=== PATIENT | male | born 1950 | race Caucasian/White ===

== ENCOUNTER 2021-11-10 09:38 | Emergency (ER) | payer OTHER, MEDICARE ==
[~2021-11-10] VITALS: Ht 188 cm; Wt 109.0 kg
[~2021-11-10 09:38] MED LIST: ASPI-611 PO; CHOL10006 PO; CYAN-51 PO; DILT360C38 PO; FINA5TAB11 PO; FURO20TA4 PO; GLUC-95 PO; LACT1CAP73 PO; LOSA25TA41 PO; METF750T46 PO; MULT-25 PO; OMEG10006 PO; OMEP20CA15 PO; POTA-207 PO; QUET25TA36 PO; SIMV10TA98 PO; SPIR25TA5 PO; TERA5CAP4 PO; VITE400C; folic acid tablet PO; thiamine tablet PO
[2021-11-10 09:55] VITALS: BP 133/76
[2021-11-10 10:28] LABS: BASOPHILS % (AUTO) 0.3 % (0-1); EOSINOPHILS % (AUTO) 0 % (0-6); HEMATOCRIT 42.7 % (42.0-52.0); HEMOGLOBIN 14.5 g/dl (14.0-17.9); LYMPHOCYTES # (AUTO) 0.7 X10'3 (1.1-4.8); MEAN CORPUSCULAR HEMOGLOBIN 33.5 PG (27.0-31.0); MEAN CORPUSCULAR HGB CONC 34.1 g/dL (33.0-36.5); MEAN CORPUSCULAR VOLUME 98.4 FL (78-98); MEAN PLATELET VOLUME 7.5 FL (7.4-10.4); MONOCYTES # (AUTO) 1.1 X10'3 (0-0.9); MONOCYTES % (AUTO) 9.7 % (2-12); NEUTROPHILS # (AUTO) 9.2 X10'3 (1.8-7.7); PLATELET COUNT 210 X10'3 (140-440); RED BLOOD COUNT 4.34 X10'6 (4.70-6.10); RED CELL DISTRIBUTION WIDTH 13.4 % (11.5-14.5); WHITE BLOOD COUNT 10.9 X10'3 (4.5-11.0)
[2021-11-10 11:01] LABS: ALANINE AMINOTRANSFERASE 30 U/L (12-78); ALBUMIN 3.3 G/DL (3.4-5.0); ALBUMIN/GLOBULIN RATIO 0.9 (1.1-1.5); ALKALINE PHOSPHATASE 147 IU/L (46-116); ANION GAP 13 (8-16); ASPARTATE AMINO TRANSFERASE 46 U/L (10-37); BILIRUBIN,TOTAL 1.6 MG/DL (0.1-1.0); BLOOD UREA NITROGEN 9 MG/DL (7-18); CALCIUM 8.4 MG/DL (8.5-10.1); CHLORIDE 100 MMOL/L (99-107); CREATININE 0.69 MG/DL (0.60-1.10); GLUCOSE 117 MG/DL (70-104); LIPASE < 50 U/L (73-393); POTASSIUM 3.9 MMOL/L (3.5-5.1); SODIUM 135 MMOL/L (135-145); TOTAL CARBON DIOXIDE 22.5 MMOL/L (24-32); TOTAL PROTEIN 7.1 G/DL (6.4-8.2); eGFR > 90 ML/MIN
[2021-11-10] MEDS ORDERED: LIDOcaine 2% 10ml TOPICAL JELLY (Urojet) MM ONE (12:40)
[2021-11-10 13:18] LABS: CLARITY,URINE CLEAR (Clear); COLOR,URINE YELLOW (Yellow); GLUCOSE, URINE NEGATIVE (Neg); KETONES,URINE TRACE mg/dl (Neg); LEUKOCYTE ESTERASE ,URINE NEGATIVE (Neg); NITRITES, URINE NEGATIVE (Neg); OCCULT BLOOD,URINE NEGATIVE (Neg); PH,URINE 5.5 (4.8-8.0); PROTEIN,URINE NEGATIVE (Neg)
[2021-11-10 13:21] LABS: UA COLLECTION TYPE CLN CATCH MIDSTREAM
== END 2021-11-10 14:31 | disposition home or self-care (01) ==
LOC: ER 09:38
DX: R33.9 Retention of urine, unspecified (principal); N39.0 Urinary tract infection, site not specified; K59.00 Constipation, unspecified; I48.91 Unspecified atrial fibrillation; E78.00 Pure hypercholesterolemia, unspecified; I10 Essential (primary) hypertension; K21.9 Gastro-esophageal reflux disease without esophagitis; E11.9 Type 2 diabetes mellitus without complications; M10.9 Gout, unspecified; F32.A Depression, unspecified; Z72.89 Other problems related to lifestyle; Z79.82 Long term (current) use of aspirin; Z79.899 Other long term (current) drug therapy
CPT/HCPCS: 36415; 51702; 80053; 81003; 83690; 85025; 99284

== ENCOUNTER 2021-11-13 12:05 | Emergency (ER) | payer OTHER, MEDICARE ==
[~2021-11-13] VITALS: Ht 188 cm; Wt 70.9 kg
[2021-11-13 15:39] LABS: BASOPHILS % (AUTO) 0.3 % (0-1); EOSINOPHILS % (AUTO) 0.2 % (0-6); HEMATOCRIT 38.5 % (42.0-52.0); HEMOGLOBIN 13.1 g/dl (14.0-17.9); LYMPHOCYTES # (AUTO) 1.2 X10'3 (1.1-4.8); LYMPHOCYTES % (AUTO) 12.2 % (21-51); MEAN CORPUSCULAR HEMOGLOBIN 33.3 PG (27.0-31.0); MEAN CORPUSCULAR HGB CONC 34.2 g/dL (33.0-36.5); MEAN CORPUSCULAR VOLUME 97.6 FL (78-98); MEAN PLATELET VOLUME 7.8 FL (7.4-10.4); MONOCYTES # (AUTO) 0.7 X10'3 (0-0.9); MONOCYTES % (AUTO) 7.1 % (2-12); NEUTROPHILS # (AUTO) 7.8 X10'3 (1.8-7.7); NEUTROPHILS % (AUTO) 80.2 % (42-75); PLATELET COUNT 189 X10'3 (140-440); RED BLOOD COUNT 3.94 X10'6 (4.70-6.10); RED CELL DISTRIBUTION WIDTH 13.1 % (11.5-14.5); WHITE BLOOD COUNT 9.7 X10'3 (4.5-11.0)
[2021-11-13 15:51] LABS: APTT 29 SECONDS (22-32)
[2021-11-13 16:15] LABS: ALANINE AMINOTRANSFERASE 28 U/L (12-78); ALBUMIN 2.7 G/DL (3.4-5.0); ALBUMIN/GLOBULIN RATIO 0.8 (1.1-1.5); ANION GAP 11 (8-16); ASPARTATE AMINO TRANSFERASE 39 U/L (10-37); BILIRUBIN,TOTAL 1.6 MG/DL (0.1-1.0); BLOOD UREA NITROGEN 11 MG/DL (7-18); BUN/CREATININE RATIO 13.9 (5.4-32.0); CALCIUM 8.5 MG/DL (8.5-10.1); CHLORIDE 99 MMOL/L (99-107); CREATININE 0.79 MG/DL (0.60-1.10); GLUCOSE 77 MG/DL (70-104); POTASSIUM 3.3 MMOL/L (3.5-5.1); SODIUM 135 MMOL/L (135-145); TOTAL CARBON DIOXIDE 24.9 MMOL/L (24-32); TOTAL PROTEIN 6.3 G/DL (6.4-8.2); eGFR > 90 ML/MIN
--- NOTE | 2021-11-13 17:42 | NUR ---
drained 850cc urine, clark in color from leg bag.
[2021-11-13] MEDS ORDERED: sulfamethoxazole/trimethoprim DS (800/160mg) tablet PO ONE (18:00)
[2021-11-13] MEDS ORDERED: LIDOcaine 1% W/epiNEPHrine 1:100,000 20ml vial SQ ONE (18:00)
[2021-11-13] MEDS ORDERED: SULF1TAB49 PO (18:43)
[2021-11-13 19:09] VITALS: BP 123/70
== END 2021-11-13 19:13 | disposition home or self-care (01) ==
LOC: ER 12:06
DX: L02.31 Cutaneous abscess of buttock (principal); R33.9 Retention of urine, unspecified; R30.0 Dysuria; I48.91 Unspecified atrial fibrillation; E78.00 Pure hypercholesterolemia, unspecified; I10 Essential (primary) hypertension; K21.9 Gastro-esophageal reflux disease without esophagitis; E11.9 Type 2 diabetes mellitus without complications; M10.9 Gout, unspecified; Z72.89 Other problems related to lifestyle; Z79.82 Long term (current) use of aspirin; Z79.899 Other long term (current) drug therapy
CPT/HCPCS: 36415; 80053; 85025; 85610; 85730; 96372; 99284

== ENCOUNTER 2021-11-20 23:05 | Emergency (ER) | payer OTHER, MEDICARE ==
[~2021-11-20] VITALS: Ht 188 cm; Wt 111.0 kg
[~2021-11-20 23:05] MED LIST changes: +SULF1TAB49 PO
[2021-11-21 00:24] LABS: CLARITY,URINE CLOUDY (Clear); COLOR,URINE YELLOW (Yellow); GLUCOSE, URINE NEGATIVE (Neg); KETONES,URINE NEGATIVE (Neg); LEUKOCYTE ESTERASE ,URINE NEGATIVE (Neg); NITRITES, URINE NEGATIVE (Neg); OCCULT BLOOD,URINE MODERATE (Neg); PH,URINE 5.5 (4.8-8.0); PROTEIN,URINE NEGATIVE (Neg)
[2021-11-21 00:37] LABS: UA COLLECTION TYPE FOLEY CATH
[2021-11-21 00:42] LABS: WBC,URINE 0-4 /HPF (0-4)
[2021-11-21 00:43] LABS: BACTERIA,URINE FEW /HPF (Neg); SQUAMOUS EPITHELIAL CELL,UR NONE SEEN /LPF (FEW)
[2021-11-21 00:45] LABS: MUCUS STRANDS FEW /LPF (Neg)
[2021-11-21 00:47] LABS: CAL OXALATE CRYSTALS FEW /HPF (NEGATIVE); URIC ACID CRYSTALS 2+ /HPF (NEGATIVE)
[2021-11-21 01:58] LABS: BASOPHILS # (AUTO) 0.1 X10'3 (0-0.2); BASOPHILS % (AUTO) 0.7 % (0-1); EOSINOPHILS % (AUTO) 0.2 % (0-6); HEMATOCRIT 37.7 % (42.0-52.0); HEMOGLOBIN 12.6 g/dl (14.0-17.9); LYMPHOCYTES # (AUTO) 0.5 X10'3 (1.1-4.8); LYMPHOCYTES % (AUTO) 5.5 % (21-51); MEAN CORPUSCULAR HEMOGLOBIN 32.8 PG (27.0-31.0); MEAN CORPUSCULAR HGB CONC 33.4 g/dL (33.0-36.5); MEAN CORPUSCULAR VOLUME 98.1 FL (78-98); MEAN PLATELET VOLUME 8.1 FL (7.4-10.4); MONOCYTES # (AUTO) 0.4 X10'3 (0-0.9); MONOCYTES % (AUTO) 4.6 % (2-12); NEUTROPHILS # (AUTO) 8.1 X10'3 (1.8-7.7); PLATELET COUNT 137 X10'3 (140-440); RED BLOOD COUNT 3.85 X10'6 (4.70-6.10); RED CELL DISTRIBUTION WIDTH 13.3 % (11.5-14.5); WHITE BLOOD COUNT 9.1 X10'3 (4.5-11.0)
[2021-11-21 02:22] LABS: ALANINE AMINOTRANSFERASE 57 U/L (12-78); ALBUMIN 2.6 G/DL (3.4-5.0); ALBUMIN/GLOBULIN RATIO 0.7 (1.1-1.5); ANION GAP 15 (8-16); ASPARTATE AMINO TRANSFERASE 110 U/L (10-37); BILIRUBIN,TOTAL 0.6 MG/DL (0.1-1.0); BLOOD UREA NITROGEN 12 MG/DL (7-18); BUN/CREATININE RATIO 14.6 (5.4-32.0); CALCIUM 8.3 MG/DL (8.5-10.1); CHLORIDE 105 MMOL/L (99-107); CREATININE 0.82 MG/DL (0.60-1.10); GLUCOSE 134 MG/DL (70-104); MAGNESIUM 1.2 MG/DL (1.5-2.4); POTASSIUM 3.6 MMOL/L (3.5-5.1); SODIUM 140 MMOL/L (135-145); TOTAL CARBON DIOXIDE 19.7 MMOL/L (24-32); TOTAL PROTEIN 6.5 G/DL (6.4-8.2); eGFR > 90 ML/MIN
[2021-11-21] MEDS ORDERED: thiamine 100mg tablet PO ONE (02:30)
[2021-11-21] MEDS ORDERED: normal saline 1000ml 1,000 ML IV ONE (02:35)
[2021-11-21] MEDS ORDERED: magnesium 2GM in 50ml NS 50 ML IV ONE (02:35)
[2021-11-21] MEDS ORDERED: magnesium oxide 400mg tablet PO ONE (02:35)
[2021-11-21 02:43] LABS: ETHANOL 0.016 GM/DL (0.0-0.010)
[2021-11-21 02:53] LABS: C-REACTIVE PROTEIN 2.52 MG/DL (0.0-0.5)
[2021-11-21 02:54] LABS: D-DIMER 2.64 MG/L FEU (0-0.50)
[2021-11-21] MEDS ORDERED: iohexol 350MG/ML 100ml bottle IV ONE (03:21)
[2021-11-21 04:34] VITALS: BP 114/69
--- NOTE | 2021-11-21 05:42 | NUR ---
CALLED FOR [facility] @2313 ETA 30 MIN
[2021-11-22] MEDS ORDERED: DILT-18 PO (14:34)
[2021-11-22] MEDS ORDERED: SULF1TAB49 PO (14:39)
== END 2021-11-21 06:05 | disposition home or self-care (01) ==
LOC: ER 23:06
DX: R53.1 Weakness (principal); Z20.822 Contact with and (suspected) exposure to COVID-19; I48.91 Unspecified atrial fibrillation; E78.00 Pure hypercholesterolemia, unspecified; I10 Essential (primary) hypertension; K21.9 Gastro-esophageal reflux disease without esophagitis; E11.9 Type 2 diabetes mellitus without complications; M10.9 Gout, unspecified; F32.A Depression, unspecified; Z72.89 Other problems related to lifestyle; Z79.82 Long term (current) use of aspirin; Z79.899 Other long term (current) drug therapy; W19.XXXA Unspecified fall, initial encounter; Y93.89 Activity, other specified; Y92.89 Other specified places as the place of occurrence of the external cause; Y99.8 Other external cause status
CPT/HCPCS: 36415; 71045; 71275; 74177; 80053; 80320; 81001; 83605; 83735; 83880; 84145; 84484; 85025; 85379; 86140; 87040; 87635; 93005; 96365; 96366; 99285; C9803; J3475; J7030; Q9967

== ENCOUNTER 2021-11-21 16:20 | Inpatient (IN) | payer OTHER, MEDICARE ==
[~2021-11-21] VITALS: Ht 188 cm; Wt 109.1 kg
--- NOTE | 2021-11-21 17:31 | NUR ---
pt ambulated approx 10 feet with mod assistance to help pt stand. provider present and aware.
[2021-11-21 17:48] LABS: BASOPHILS # (AUTO) 0.1 X10'3 (0-0.2); BASOPHILS % (AUTO) 0.5 % (0-1); EOSINOPHILS % (AUTO) 0 % (0-6); HEMATOCRIT 38.7 % (42.0-52.0); LYMPHOCYTES # (AUTO) 0.5 X10'3 (1.1-4.8); LYMPHOCYTES % (AUTO) 2.9 % (21-51); MEAN CORPUSCULAR HEMOGLOBIN 32.7 PG (27.0-31.0); MEAN CORPUSCULAR HGB CONC 33.6 g/dL (33.0-36.5); MEAN CORPUSCULAR VOLUME 97.1 FL (78-98); MEAN PLATELET VOLUME 8.6 FL (7.4-10.4); MONOCYTES # (AUTO) 0.5 X10'3 (0-0.9); NEUTROPHILS # (AUTO) 16.9 X10'3 (1.8-7.7); NEUTROPHILS % (AUTO) 93.6 % (42-75); PLATELET COUNT 155 X10'3 (140-440); RED BLOOD COUNT 3.99 X10'6 (4.70-6.10); RED CELL DISTRIBUTION WIDTH 13.7 % (11.5-14.5)
[2021-11-21] MEDS ORDERED: normal saline 1000ML IV soln IVB ONE (18:05)
[2021-11-21] MEDS ORDERED: lactulose 20gm/30ml cup PO ONE (18:10)
[2021-11-21 18:11] LABS: ALANINE AMINOTRANSFERASE 56 U/L (12-78); ALBUMIN 2.7 G/DL (3.4-5.0); ALBUMIN/GLOBULIN RATIO 0.8 (1.1-1.5); ALKALINE PHOSPHATASE 153 IU/L (46-116); ANION GAP 13 (8-16); ASPARTATE AMINO TRANSFERASE 72 U/L (10-37); BILIRUBIN,TOTAL 1.1 MG/DL (0.1-1.0); BLOOD UREA NITROGEN 10 MG/DL (7-18); BUN/CREATININE RATIO 12.7 (5.4-32.0); CALCIUM 7.6 MG/DL (8.5-10.1); CHLORIDE 102 MMOL/L (99-107); CREATININE 0.79 MG/DL (0.60-1.10); GLUCOSE 154 MG/DL (70-104); POTASSIUM 3.4 MMOL/L (3.5-5.1); SODIUM 135 MMOL/L (135-145); TOTAL CARBON DIOXIDE 20.1 MMOL/L (24-32); TOTAL PROTEIN 6.3 G/DL (6.4-8.2); eGFR > 90 ML/MIN
[2021-11-21] MEDS ORDERED: CefTRIAXone 2gm/D5W 50ml BAG 50 ML IV ONE (18:40)
[2021-11-21 18:52] LABS: MAGNESIUM 1.5 MG/DL (1.5-2.4)
[2021-11-21 19:30] LABS: CLARITY,URINE CLOUDY (Clear); COLOR,URINE YELLOW (Yellow); GLUCOSE, URINE NEGATIVE (Neg); KETONES,URINE TRACE mg/dl (Neg); LEUKOCYTE ESTERASE ,URINE NEGATIVE (Neg); NITRITES, URINE POSITIVE (Neg); OCCULT BLOOD,URINE LARGE (Neg); PROTEIN,URINE 30 mg/dl (Neg)
[2021-11-21 19:33] LABS: UA COLLECTION TYPE FOLEY CATH
[2021-11-21 19:44] LABS: BACTERIA,URINE 1+ /HPF (Neg); MUCUS STRANDS FEW /LPF (Neg); SQUAMOUS EPITHELIAL CELL,UR FEW /LPF (FEW)
[2021-11-21 19:45] LABS: CAL OXALATE CRYSTALS 1+ /HPF (NEGATIVE); URIC ACID CRYSTALS 3+ /HPF (NEGATIVE)
[2021-11-21] MEDS ORDERED: potassium CL 10mEq/100ml bag 100 ML IV PRN (23:05)
[2021-11-21] MEDS ORDERED: magnesium 2GM in 50ml NS 50 ML IV PRN (23:05)
[2021-11-21] MEDS ORDERED: potassium Cl 20 mEq SR tablet PO PRN (23:05)
[2021-11-21] MEDS ORDERED: LORazepam 1 MG tablet PO PRN (23:05)
[2021-11-21] MEDS ORDERED: magnesium 4gm in 100ml NS 100 ML IV PRN (23:05)
[2021-11-21] MEDS ORDERED: acetaminophen 325mg tablet PO PRN ×2 (23:05)
[2021-11-21] MEDS ORDERED: LORazepam 2 mg/ml vial IV PRN (23:05)
[2021-11-21] MEDS ORDERED: morphine 2 MG/ML inj. syringe IV PRN (23:05)
[2021-11-21] MEDS ORDERED: magnesium Cl slow-release 64mg tablet PO PRN (23:05)
[2021-11-21] MEDS ORDERED: normal saline 1000ml 1,000 ML IV SCH (23:05)
[2021-11-21] MEDS ORDERED: ondansetron/PF 4mg/2ml inj IV PRN (23:05)
[2021-11-22] MEDS: piperacillin/tazo 3.375gm/50ml 50 ML IV SCH ×4 (00:17→23:45)
[2021-11-22 01:10] VITALS: BP 122/81
[2021-11-22 06:24] LABS: BASOPHILS % (AUTO) 0.3 % (0-1); EOSINOPHILS % (AUTO) 0.1 % (0-6); HEMATOCRIT 35.2 % (42.0-52.0); HEMOGLOBIN 11.8 g/dl (14.0-17.9); LYMPHOCYTES # (AUTO) 0.5 X10'3 (1.1-4.8); LYMPHOCYTES % (AUTO) 4.8 % (21-51); MEAN CORPUSCULAR HEMOGLOBIN 33.2 PG (27.0-31.0); MEAN CORPUSCULAR HGB CONC 33.5 g/dL (33.0-36.5); MEAN PLATELET VOLUME 9.1 FL (7.4-10.4); MONOCYTES # (AUTO) 0.3 X10'3 (0-0.9); MONOCYTES % (AUTO) 2.4 % (2-12); NEUTROPHILS # (AUTO) 9.9 X10'3 (1.8-7.7); NEUTROPHILS % (AUTO) 92.4 % (42-75); PLATELET COUNT 115 X10'3 (140-440); RED BLOOD COUNT 3.56 X10'6 (4.70-6.10); RED CELL DISTRIBUTION WIDTH 13.8 % (11.5-14.5); WHITE BLOOD COUNT 10.7 X10'3 (4.5-11.0)
[2021-11-22 06:37] LABS: ALANINE AMINOTRANSFERASE 43 U/L (12-78); ALBUMIN 2.2 G/DL (3.4-5.0); ALBUMIN/GLOBULIN RATIO 0.7 (1.1-1.5); ALKALINE PHOSPHATASE 112 IU/L (46-116); ANION GAP 12 (8-16); ASPARTATE AMINO TRANSFERASE 36 U/L (10-37); BILIRUBIN,TOTAL 1.2 MG/DL (0.1-1.0); BLOOD UREA NITROGEN 12 MG/DL (7-18); BUN/CREATININE RATIO 15.6 (5.4-32.0); CALCIUM 7.3 MG/DL (8.5-10.1); CHLORIDE 106 MMOL/L (99-107); CREATININE 0.77 MG/DL (0.60-1.10); GLUCOSE 117 MG/DL (70-104); LIPASE < 50 U/L (73-393); MAGNESIUM 1.4 MG/DL (1.5-2.4); PHOSPHORUS 2.1 MG/DL (2.3-4.5); POTASSIUM 3.4 MMOL/L (3.5-5.1); SODIUM 139 MMOL/L (135-145); TOTAL CARBON DIOXIDE 21.1 MMOL/L (24-32); TOTAL PROTEIN 5.4 G/DL (6.4-8.2); eGFR > 90 ML/MIN
[2021-11-22 06:45] LABS: HEMOGLOBIN A1C 6.1 % (4.5-6.2)
[2021-11-22 08:00] VITALS: BP 112/73
[2021-11-22] MEDS: K and/or MAG REPLACEMENT MC SCH ×2 (08:24→20:30)
[2021-11-22] MEDS: potassium Cl 20 mEq SR tablet PO PRN ×5 (08:24→20:58)
[2021-11-22] MEDS: heparin, porcine 5000 units/ml vial SQ SCH ×2 (08:24→20:56)
--- NOTE | 2021-11-22 10:45 | NUR ---
Malnutrition consult: Pt admit dx sepsis secondary to acute UTI, weakness, cirrhosis of liver, and chronic alcoholism per EMR. Pt reports 14-23 lb wt loss and decreased appetite per EMR. international logistics analyst spoke w/ pt at bedside and noted pt mostly consumes salad and fruit at home w/ a decreased appetite the last two weeks, and over the last year has lost a total of 25 lbs. Pt currently on regular diet and pending PO intake, though pt states he consumed roughly 1/3 of his last meal. Pt current wt 109kg unscaled, though wt hx February 2021 chair scale 103kg, and pt reported recent standing scale wt of 111 kg. Pending physical assessment, though pt has no visible signs of fat and muscle wasting observed at bedside. Pt lacks minimum two malnutrition criteria at this time. No nutrition intervention implemented at this time, pending further PO trends. Recommendations: 1. Continue regular diet 2. Monitor need for ONS vs double protein WM 3. Routine bowel care 4. Scaled wt this admit, subsequent weekly scaled wts Addendum: 11/22/21 at 1046 by Airam Lovelace Slubber Frame Changer RD Amended: Links added. Addendum: 11/22/21 at [address] I have reviewed assessment by brand marketing intern
[2021-11-22 11:00] VITALS: BP 113/70
[2021-11-22] MEDS: HYDROcodone/acetaminophen 5mg/325mg tablet PO PRN ×2 (12:37→17:20)
[2021-11-22] MEDS ORDERED: DILT-18 PO (14:34)
[2021-11-22] MEDS ORDERED: SULF1TAB49 PO (14:39)
--- NOTE | 2021-11-22 15:26 | NUR ---
Student documentation: I have reviewed and agree with all interventions, assessments performed and documented by Bia Chavez. Addendum: 11/22/21 at 1528 by Katerina CABRERA Amended: Links added.
[2021-11-22 18:00] VITALS: BP 111/69
[2021-11-22] MEDS ORDERED: quetiapine 100mg tablet PO SCH (21:00)
[2021-11-22] MEDS ORDERED: QUEtiapine 25mg tablet PO SCH ×2 (21:24→21:37)
[2021-11-22 23:33] VITALS: BP 111/69
[2021-11-23] VITALS: BP 102/73
--- NOTE | 2021-11-23 02:20 | NUR ---
pt has estrada in place to leg bag, states inserted @ 3 weeks ago. Addendum: 11/23/21 at 0221 by Sundeep Swan RN Amended: Links added.
--- NOTE | 2021-11-23 06:10 | NUR ---
Patient in room [facility]. I have received report from STACEY Talavera and had the opportunity to ask questions and assume patient care.
[2021-11-23 06:19] LABS: BASOPHILS % (AUTO) 0.5 % (0-1); EOSINOPHILS # (AUTO) 0.1 X10'3 (0-0.9); HEMATOCRIT 34.2 % (42.0-52.0); HEMOGLOBIN 11.5 g/dl (14.0-17.9); LYMPHOCYTES # (AUTO) 0.6 X10'3 (1.1-4.8); LYMPHOCYTES % (AUTO) 8.6 % (21-51); MEAN CORPUSCULAR HEMOGLOBIN 33.1 PG (27.0-31.0); MEAN CORPUSCULAR HGB CONC 33.6 g/dL (33.0-36.5); MEAN CORPUSCULAR VOLUME 98.7 FL (78-98); MEAN PLATELET VOLUME 8.8 FL (7.4-10.4); MONOCYTES # (AUTO) 0.2 X10'3 (0-0.9); MONOCYTES % (AUTO) 3.1 % (2-12); NEUTROPHILS # (AUTO) 5.6 X10'3 (1.8-7.7); NEUTROPHILS % (AUTO) 86.8 % (42-75); PLATELET COUNT 105 X10'3 (140-440); RED BLOOD COUNT 3.46 X10'6 (4.70-6.10); RED CELL DISTRIBUTION WIDTH 14.2 % (11.5-14.5); WHITE BLOOD COUNT 6.4 X10'3 (4.5-11.0)
[2021-11-23 06:29] LABS: ALANINE AMINOTRANSFERASE 31 U/L (12-78); ALBUMIN/GLOBULIN RATIO 0.6 (1.1-1.5); ALKALINE PHOSPHATASE 110 IU/L (46-116); ANION GAP 11 (8-16); ASPARTATE AMINO TRANSFERASE 53 U/L (10-37); BILIRUBIN,TOTAL 1.6 MG/DL (0.1-1.0); BLOOD UREA NITROGEN 15 MG/DL (7-18); CALCIUM 7.5 MG/DL (8.5-10.1); CHLORIDE 108 MMOL/L (99-107); CREATININE 0.75 MG/DL (0.60-1.10); GLUCOSE 104 MG/DL (70-104); LIPASE < 50 U/L (73-393); MAGNESIUM 1.6 MG/DL (1.5-2.4); PHOSPHORUS 1.7 MG/DL (2.3-4.5); POTASSIUM 3.9 MMOL/L (3.5-5.1); SODIUM 140 MMOL/L (135-145); TOTAL CARBON DIOXIDE 21.5 MMOL/L (24-32); TOTAL PROTEIN 5.4 G/DL (6.4-8.2); eGFR > 90 ML/MIN
[2021-11-23 07:00] VITALS: BP 113/79
[2021-11-23] MEDS ORDERED: glucagon, human recombinant 1mg kit SUBCUT PRN (07:20)
[2021-11-23] MEDS ORDERED: dextrose 50%-water 50ml dispensing syringe IV PRN ×2 (07:20)
[2021-11-23] MEDS ORDERED: DEXTROSE 15 GM of carb/4 tabs (each vial/BOTTLE has 4 tablets) PO PRN ×2 (07:20)
[2021-11-23] MEDS ORDERED: insulin Lispro (HumaLOG) vial - multi-dose SQ SCH (07:20)
[2021-11-23] MEDS: K and/or MAG REPLACEMENT MC SCH (08:00)
[2021-11-23] MEDS: heparin, porcine 5000 units/ml vial SQ SCH (09:37)
[2021-11-23] MEDS: piperacillin/tazo 3.375gm/50ml 50 ML IV SCH (09:37)
[2021-11-23 10:20] LABS: CLARITY,URINE CLEAR (Clear); COLOR,URINE YELLOW (Yellow); GLUCOSE, URINE NEGATIVE (Neg); KETONES,URINE TRACE mg/dl (Neg); LEUKOCYTE ESTERASE ,URINE NEGATIVE (Neg); NITRITES, URINE NEGATIVE (Neg); OCCULT BLOOD,URINE TRACE-INTACT (Neg); PH,URINE 6.5 (4.8-8.0); PROTEIN,URINE NEGATIVE (Neg)
[2021-11-23 10:26] LABS: UA COLLECTION TYPE FOLEY CATH
[2021-11-23 10:27] LABS: BACTERIA,URINE NONE SEEN /HPF (Neg); MUCUS STRANDS FEW /LPF (Neg); RBC,URINE 0-2 /HPF (0-2); SQUAMOUS EPITHELIAL CELL,UR FEW /LPF (FEW); WBC,URINE 0-4 /HPF (0-4)
[2021-11-23] MEDS ORDERED: CIPR-202 PO (10:49)
[2021-11-23 11:00] VITALS: BP 109/72
--- NOTE | 2021-11-23 14:20 | NUR ---
DC inst provided to pt. IV DC'd, tip intact. All belongings sent w/pt. WC to vehicle.
[2021-11-23] MEDS ORDERED: insulin glargine (Lantus) pen - multi-dose SQ SCH (21:00)
[2021-11-26] MEDS ORDERED: thiamine 100mg tablet PO SCH (08:00)
[2021-11-26] MEDS ORDERED: folic acid 1mg tablet PO SCH (08:00)
== END 2021-11-23 14:50 | disposition home health service (06) | DRG 698 ==
LOC: ER 16:21 → ED HOLD 23:08 → SUR 3N 11-22 00:20
PROVIDERS: ADMIT Internal Medicine; ATTEND Family Medicine
DX: T83.511A Infection and inflammatory reaction due to indwelling urethral catheter, initial encounter (principal); A41.9 Sepsis, unspecified organism; N39.0 Urinary tract infection, site not specified; E11.9 Type 2 diabetes mellitus without complications; Z20.822 Contact with and (suspected) exposure to COVID-19; E78.00 Pure hypercholesterolemia, unspecified; N40.1 Benign prostatic hyperplasia with lower urinary tract symptoms; R33.8 Other retention of urine; E78.5 Hyperlipidemia, unspecified; E87.6 Hypokalemia; F10.20 Alcohol dependence, uncomplicated; K74.60 Unspecified cirrhosis of liver; I10 Essential (primary) hypertension; I48.91 Unspecified atrial fibrillation; F32.A Depression, unspecified; K21.9 Gastro-esophageal reflux disease without esophagitis; K76.9 Liver disease, unspecified; M10.9 Gout, unspecified; Z71.41 Alcohol abuse counseling and surveillance of alcoholic
CPT/HCPCS: 36415; 80053; 81001; 82140; 82948; 83036; 83605; 83690; 83735; 84100; 84145; 85025; 85610; 87040; 87081; 87502; 87503; 87635; 97110; 97116; 97162; 99285; C9803; G0378; J0696; J1644; J1815; J2543; J7030

== ENCOUNTER 2021-12-07 09:08 | Emergency (ER) | payer OTHER, MEDICARE ==
[~2021-12-07] VITALS: Ht 188 cm; Wt 112.9 kg
[~2021-12-07 09:08] MED LIST changes: -ASPI-611 PO; -CHOL10006 PO; +CIPR-202 PO; +DILT-18 PO; -DILT360C38 PO; -GLUC-95 PO; -LACT1CAP73 PO; +LIDOcaine 1% 30ml preserv. free vial ONE; -MULT-25 PO; -OMEG10006 PO; -SPIR25TA5 PO; -SULF1TAB49 PO; -TERA5CAP4 PO; -VITE400C; -folic acid tablet PO; -thiamine tablet PO
[2021-12-07] MEDS ORDERED: albumin (human) 25% 100 ML IV solution IV ONE (10:30)
[2021-12-07 11:16] LABS: BASOPHILS # (AUTO) 0.1 X10'3 (0-0.2); BASOPHILS % (AUTO) 1.9 % (0-1); EOSINOPHILS # (AUTO) 0.1 X10'3 (0-0.9); EOSINOPHILS % (AUTO) 1.4 % (0-6); HEMOGLOBIN 12.2 g/dl (14.0-17.9); LYMPHOCYTES # (AUTO) 0.9 X10'3 (1.1-4.8); LYMPHOCYTES % (AUTO) 11.5 % (21-51); MEAN CORPUSCULAR HEMOGLOBIN 32.6 PG (27.0-31.0); MEAN CORPUSCULAR HGB CONC 32.9 g/dL (33.0-36.5); MEAN CORPUSCULAR VOLUME 99.3 FL (78-98); MEAN PLATELET VOLUME 8.9 FL (7.4-10.4); MONOCYTES # (AUTO) 0.4 X10'3 (0-0.9); MONOCYTES % (AUTO) 5.1 % (2-12); NEUTROPHILS % (AUTO) 80.1 % (42-75); PLATELET COUNT 230 X10'3 (140-440); RED BLOOD COUNT 3.73 X10'6 (4.70-6.10); RED CELL DISTRIBUTION WIDTH 14.3 % (11.5-14.5); WHITE BLOOD COUNT 7.5 X10'3 (4.5-11.0)
[2021-12-07 11:27] LABS: APTT 29 SECONDS (22-32)
[2021-12-07 11:31] LABS: ALANINE AMINOTRANSFERASE 48 U/L (12-78); ALBUMIN 2.4 G/DL (3.4-5.0); ALBUMIN/GLOBULIN RATIO 0.5 (1.1-1.5); ALKALINE PHOSPHATASE 119 IU/L (46-116); ANION GAP 10 (8-16); ASPARTATE AMINO TRANSFERASE 95 U/L (10-37); BILIRUBIN,TOTAL 1.3 MG/DL (0.1-1.0); BLOOD UREA NITROGEN 9 MG/DL (7-18); CALCIUM 8.6 MG/DL (8.5-10.1); CHLORIDE 107 MMOL/L (99-107); CREATININE 0.82 MG/DL (0.60-1.10); GLUCOSE 113 MG/DL (70-104); POTASSIUM 4.3 MMOL/L (3.5-5.1); SODIUM 140 MMOL/L (135-145); TOTAL CARBON DIOXIDE 23.1 MMOL/L (24-32); TOTAL PROTEIN 6.9 G/DL (6.4-8.2); eGFR > 90 ML/MIN
[2021-12-07] MEDS ORDERED: LIDOcaine 1% 30ml preserv. free vial IJ ONE (12:00)
--- NOTE | 2021-12-07 12:14 | NUR ---
dr. alcantar at bedside for paracentesis.
[2021-12-07 13:39] VITALS: BP 129/85
== END 2021-12-07 13:46 | disposition home or self-care (01) ==
LOC: ER 09:08
DX: K70.31 Alcoholic cirrhosis of liver with ascites (principal); I48.91 Unspecified atrial fibrillation; E78.00 Pure hypercholesterolemia, unspecified; I10 Essential (primary) hypertension; K21.9 Gastro-esophageal reflux disease without esophagitis; E11.9 Type 2 diabetes mellitus without complications; M10.9 Gout, unspecified; N40.0 Benign prostatic hyperplasia without lower urinary tract symptoms; K76.9 Liver disease, unspecified; Z72.89 Other problems related to lifestyle; Z79.2 Long term (current) use of antibiotics; Z79.899 Other long term (current) drug therapy
CPT/HCPCS: 36415; 49083; 80053; 85025; 85610; 85730; 96365; 99285; J3490; P9047

== ENCOUNTER 2021-12-14 15:53 | Emergency (ER) | payer OTHER, MEDICARE ==
[~2021-12-14] VITALS: Ht 188 cm; Wt 111.0 kg
[~2021-12-14 15:53] MED LIST changes: -LIDOcaine 1% 30ml preserv. free vial ONE
[2021-12-14 16:00] VITALS: BP 118/77
[2021-12-14] MEDS ORDERED: FURO-149 PO (17:57)
[2021-12-14] MEDS ORDERED: SPIR50TA5 PO (17:57)
== END 2021-12-14 18:13 | disposition home or self-care (01) ==
LOC: ER 15:53
DX: R18.8 Other ascites (principal); K74.60 Unspecified cirrhosis of liver; R60.0 Localized edema; I48.91 Unspecified atrial fibrillation; E78.00 Pure hypercholesterolemia, unspecified; I10 Essential (primary) hypertension; K21.9 Gastro-esophageal reflux disease without esophagitis; N40.0 Benign prostatic hyperplasia without lower urinary tract symptoms; E11.9 Type 2 diabetes mellitus without complications; M10.9 Gout, unspecified; K72.90 Hepatic failure, unspecified without coma; Z72.89 Other problems related to lifestyle; Z79.2 Long term (current) use of antibiotics; Z79.899 Other long term (current) drug therapy
CPT/HCPCS: 99283

== ENCOUNTER 2021-12-31 10:22 | Emergency (ER) | payer OTHER, MEDICARE ==
[~2021-12-31] VITALS: Ht 188 cm; Wt 115.9 kg
[~2021-12-31 10:22] MED LIST changes: -CIPR-202 PO; +FURO-149 PO; +SPIR50TA5 PO
--- NOTE | 2021-12-31 12:03 | NUR ---
first contact with pt, presents to ed requesting paracentesis. pt states his appt is in sacrmento to be drained. pt reports abd tenderness and diarrhea. ambulated with steady to er bed 7. awaiting md.
--- NOTE | 2021-12-31 12:55 | NUR ---
dr. kaplan at bedside.
[2021-12-31 14:06] LABS: ALBUMIN 2.8 G/DL (3.4-5.0); ANION GAP 13 (8-16); BLOOD UREA NITROGEN 8 MG/DL (7-18); BUN/CREATININE RATIO 8.6 (5.4-32.0); CHLORIDE 107 MMOL/L (99-107); CREATININE 0.93 MG/DL (0.60-1.10); GLUCOSE 132 MG/DL (70-104); POTASSIUM 3.9 MMOL/L (3.5-5.1); SODIUM 142 MMOL/L (135-145); TOTAL CARBON DIOXIDE 22.2 MMOL/L (24-32); eGFR 80 ML/MIN
[2021-12-31 17:08] VITALS: BP 127/76
== END 2021-12-31 17:31 | disposition home or self-care (01) ==
LOC: ER 10:23
DX: K70.31 Alcoholic cirrhosis of liver with ascites (principal); I48.91 Unspecified atrial fibrillation; E78.00 Pure hypercholesterolemia, unspecified; I10 Essential (primary) hypertension; K21.9 Gastro-esophageal reflux disease without esophagitis; N40.0 Benign prostatic hyperplasia without lower urinary tract symptoms; E11.9 Type 2 diabetes mellitus without complications; M10.9 Gout, unspecified; Z72.89 Other problems related to lifestyle; Z79.2 Long term (current) use of antibiotics; Z79.899 Other long term (current) drug therapy
CPT/HCPCS: 36415; 49083; 80048; 99285

== ENCOUNTER 2022-05-16 09:58 | Emergency (ER) | payer OTHER, MEDICARE ==
[~2022-05-16] VITALS: Ht 182.9 cm; Wt 109.1 kg
[2022-05-16 11:58] LABS: BASOPHILS % (AUTO) 0.8 % (0-1); EOSINOPHILS % (AUTO) 0.7 % (0-6); HEMATOCRIT 39.2 % (42.0-52.0); HEMOGLOBIN 13.5 g/dl (14.0-17.9); LYMPHOCYTES # (AUTO) 0.7 X10'3 (1.1-4.8); LYMPHOCYTES % (AUTO) 13.1 % (21-51); MEAN CORPUSCULAR HEMOGLOBIN 31.3 PG (27.0-31.0); MEAN CORPUSCULAR HGB CONC 34.4 g/dL (33.0-36.5); MEAN CORPUSCULAR VOLUME 91.1 FL (78-98); MEAN PLATELET VOLUME 7.9 FL (7.4-10.4); MONOCYTES # (AUTO) 0.4 X10'3 (0-0.9); MONOCYTES % (AUTO) 8.5 % (2-12); NEUTROPHILS # (AUTO) 3.8 X10'3 (1.8-7.7); NEUTROPHILS % (AUTO) 76.9 % (42-75); PLATELET COUNT 117 X10'3 (140-440); RED CELL DISTRIBUTION WIDTH 18.8 % (11.5-14.5)
[2022-05-16 12:14] LABS: ANISOCYTOSIS 2+; PLATELET ESTIMATE DECREASED
[2022-05-16 12:26] LABS: ALANINE AMINOTRANSFERASE 36 U/L (12-78); ALBUMIN 2.7 G/DL (3.4-5.0); ALBUMIN/GLOBULIN RATIO 0.7 (1.1-1.5); ALKALINE PHOSPHATASE 142 IU/L (46-116); ANION GAP 16 (8-16); ASPARTATE AMINO TRANSFERASE 68 U/L (10-37); BILIRUBIN,TOTAL 1.2 MG/DL (0.1-1.0); BLOOD UREA NITROGEN 11 MG/DL (7-18); BUN/CREATININE RATIO 10.5 (5.4-32.0); CALCIUM 7.9 MG/DL (8.5-10.1); CHLORIDE 102 MMOL/L (99-107); CREATININE 1.05 MG/DL (0.60-1.10); GLUCOSE 124 MG/DL (70-104); POTASSIUM 3.6 MMOL/L (3.5-5.1); SODIUM 140 MMOL/L (135-145); TOTAL PROTEIN 6.6 G/DL (6.4-8.2); eGFR 69 ML/MIN
[2022-05-16] MEDS ORDERED: LIDOcaine 1% 30ml preserv. free vial IJ ONE (13:20)
--- NOTE | 2022-05-16 13:25 | NUR ---
Called pharmacy for Lidocaine order.
[2022-05-16] MEDS ORDERED: LIDOcaine 1% (10mg/ml)w/preservative inj. 20ml MDV IJ ONE (13:30)
--- NOTE | 2022-05-16 14:00 | NUR ---
Provider at bedside to do paracentesis.
[2022-05-16] MEDS ORDERED: albumin (human) 25% 100 ML IV solution IV ONE (14:15)
[2022-05-16] MEDS ORDERED: FURO-149 PO (14:55)
[2022-05-16 16:02] LABS: CLARITY,URINE CLEAR (Clear); COLOR,URINE YELLOW (Yellow); GLUCOSE, URINE NEGATIVE (Neg); KETONES,URINE NEGATIVE (Neg); LEUKOCYTE ESTERASE ,URINE NEGATIVE (Neg); NITRITES, URINE NEGATIVE (Neg); OCCULT BLOOD,URINE NEGATIVE (Neg); PROTEIN,URINE NEGATIVE (Neg); UROBILINOGEN,URINE 0.2 E.U/dL (0.2-1.0)
[2022-05-16 16:07] LABS: UA COLLECTION TYPE CLN CATCH MIDSTREAM
[2022-05-16 16:34] VITALS: BP 126/91
== END 2022-05-16 17:02 | disposition home or self-care (01) ==
LOC: ER 09:58
DX: K70.31 Alcoholic cirrhosis of liver with ascites (principal); I11.9 Hypertensive heart disease without heart failure; E78.00 Pure hypercholesterolemia, unspecified; K21.9 Gastro-esophageal reflux disease without esophagitis; E11.9 Type 2 diabetes mellitus without complications; F32.A Depression, unspecified; Z79.899 Other long term (current) drug therapy; Z79.84 Long term (current) use of oral hypoglycemic drugs
CPT/HCPCS: 49083; 80053; 81003; 85008; 85025; 96374; 99285; P9047

== ENCOUNTER 2022-06-03 07:07 | Emergency (ER) | payer OTHER, MEDICARE ==
[~2022-06-03] VITALS: Ht 182.9 cm; Wt 110.8 kg
[2022-06-03] MEDS ORDERED: LIDOcaine 1% w/EPI 1:100,000 30ml vial (MDV) IJ ONE (07:55)
[2022-06-03] MEDS ORDERED: LIDOcaine 1% W/epiNEPHrine 1:200,000 10ml vial IJ ONE (07:55)
[2022-06-03 09:19] VITALS: BP 129/84
== END 2022-06-03 09:25 | disposition home or self-care (01) ==
LOC: ER 07:08
DX: R18.8 Other ascites (principal); E78.00 Pure hypercholesterolemia, unspecified; I10 Essential (primary) hypertension; K21.9 Gastro-esophageal reflux disease without esophagitis; Z87.891 Personal history of nicotine dependence
CPT/HCPCS: 49083; 99285

== ENCOUNTER 2022-06-24 07:53 | Day surgery (SDC) | payer OTHER ==
[~2022-06-24] VITALS: Ht 182.9 cm; Wt 108.8 kg
[2022-06-24] VITALS (12 sets, daily range): BP systolic 109–134; BP diastolic 73–94
[2022-06-24] MEDS ORDERED: LIDOcaine 1%/PF 5ML 10 MG/ML VIAL SQ ONE (08:15)
[2022-06-24] MEDS ORDERED: FURO-150 PO (08:50)
[2022-06-24] MEDS: albumin 25% 100mL bottle x 1 IV PRN ×2 (10:27→11:27)
== END 2022-06-24 12:20 | disposition home or self-care (01) ==
LOC: SSTAY O 07:53
PROVIDERS: ATTEND Radiology Vascular & Interventional Radiology
DX: R18.8 Other ascites (principal); K74.60 Unspecified cirrhosis of liver; Z79.899 Other long term (current) drug therapy; Z72.89 Other problems related to lifestyle; Z98.890 Other specified postprocedural states
CPT/HCPCS: 49083; J3490; P9047; A6258; A6449

== ENCOUNTER 2022-07-01 21:58 | Emergency (ER) | payer OTHER, MEDICARE ==
[~2022-07-01] VITALS: Ht 182.9 cm; Wt 104.5 kg
[~2022-07-01 21:58] MED LIST changes: +FURO-150 PO; -LOSA25TA41 PO; -METF750T46 PO
[2022-07-01 22:35] LABS: BASOPHILS % (AUTO) 0.6 % (0-1); EOSINOPHILS % (AUTO) 0.4 % (0-6); HEMATOCRIT 39.6 % (42.0-52.0); HEMOGLOBIN 13.6 g/dl (14.0-17.9); LYMPHOCYTES # (AUTO) 0.8 X10'3 (1.1-4.8); LYMPHOCYTES % (AUTO) 13.9 % (21-51); MEAN CORPUSCULAR HGB CONC 34.3 g/dL (33.0-36.5); MEAN CORPUSCULAR VOLUME 96.1 FL (78-98); MEAN PLATELET VOLUME 7.6 FL (7.4-10.4); MONOCYTES # (AUTO) 0.5 X10'3 (0-0.9); MONOCYTES % (AUTO) 8.6 % (2-12); NEUTROPHILS # (AUTO) 4.2 X10'3 (1.8-7.7); NEUTROPHILS % (AUTO) 76.5 % (42-75); PLATELET COUNT 96 X10'3 (140-440); RED BLOOD COUNT 4.13 X10'6 (4.70-6.10); RED CELL DISTRIBUTION WIDTH 15.8 % (11.5-14.5); WHITE BLOOD COUNT 5.5 X10'3 (4.5-11.0)
[2022-07-01 22:41] LABS: ALANINE AMINOTRANSFERASE 41 U/L (12-78); ALBUMIN 2.6 G/DL (3.4-5.0); ALBUMIN/GLOBULIN RATIO 0.7 (1.1-1.5); ALKALINE PHOSPHATASE 161 IU/L (46-116); ANION GAP 12 (8-16); ASPARTATE AMINO TRANSFERASE 92 U/L (10-37); BILIRUBIN,TOTAL 1.8 MG/DL (0.1-1.0); BLOOD UREA NITROGEN 12 MG/DL (7-18); BUN/CREATININE RATIO 8.9 (5.4-32.0); CALCIUM 8.4 MG/DL (8.5-10.1); CHLORIDE 93 MMOL/L (99-107); CREATININE 1.35 MG/DL (0.60-1.10); GLUCOSE 135 MG/DL (70-104); POTASSIUM 3.3 MMOL/L (3.5-5.1); SODIUM 132 MMOL/L (135-145); TOTAL PROTEIN 6.3 G/DL (6.4-8.2); eGFR 52 ML/MIN
[2022-07-02] MEDS ORDERED: normal saline 1000ML IV soln IVB ONE (00:10)
[2022-07-02] MEDS ORDERED: potassium Cl 20 mEq SR tablet PO ONE (00:10)
[2022-07-02] MEDS ORDERED: ondansetron/PF 4mg/2ml inj IV ONE (00:10)
[2022-07-02 00:50] LABS: CLARITY,URINE CLEAR (Clear); GLUCOSE, URINE NEGATIVE (Neg); KETONES,URINE 15 mg/dl (Neg); LEUKOCYTE ESTERASE ,URINE NEGATIVE (Neg); NITRITES, URINE NEGATIVE (Neg); OCCULT BLOOD,URINE NEGATIVE (Neg); PH,URINE 5.5 (4.8-8.0); PROTEIN,URINE NEGATIVE (Neg); UROBILINOGEN,URINE >=8.0 E.U/dL (0.2-1.0)
[2022-07-02 00:54] LABS: COLOR,URINE DARK YELLOW (Yellow); UA COLLECTION TYPE URINAL
[2022-07-02 01:15] VITALS: BP 115/86
--- NOTE | 2022-07-02 02:15 | NUR ---
pt. seen and treated by dr. Lopez for generalized weakness and malaise. Instructions given and reviewed with patient, verbalized understanding. dc via w/c waiting for grandson to hot die picker.
== END 2022-07-02 02:07 | disposition home or self-care (01) ==
LOC: ER 21:59
DX: R53.81 Other malaise (principal); R11.2 Nausea with vomiting, unspecified; K40.90 Unilateral inguinal hernia, without obstruction or gangrene, not specified as recurrent; I48.91 Unspecified atrial fibrillation; I10 Essential (primary) hypertension; E11.9 Type 2 diabetes mellitus without complications; Z72.89 Other problems related to lifestyle; Z79.899 Other long term (current) drug therapy
CPT/HCPCS: 36415; 71045; 80053; 81003; 83880; 84484; 85025; 93005; 96374; 99285; J2405; J7030

== ENCOUNTER 2022-07-08 07:59 | Day surgery (SDC) | payer OTHER ==
[2022-07-08] VITALS (10 sets, daily range): BP systolic 91–115; BP diastolic 53–88
[~2022-07-08] VITALS: Ht 182.9 cm; Wt 101.6 kg
[2022-07-08] MEDS: albumin 25% 100mL bottle x 1 IV PRN ×2 (09:58→10:16)
== END 2022-07-08 12:05 | disposition home or self-care (01) ==
LOC: SSTAY O 07:59
PROVIDERS: ATTEND Radiology Diagnostic Radiology
DX: K70.31 Alcoholic cirrhosis of liver with ascites (principal); I48.91 Unspecified atrial fibrillation; I10 Essential (primary) hypertension; K21.9 Gastro-esophageal reflux disease without esophagitis; E11.9 Type 2 diabetes mellitus without complications; F43.10 Post-traumatic stress disorder, unspecified; Z79.899 Other long term (current) drug therapy; Z98.890 Other specified postprocedural states
CPT/HCPCS: 49083; P9047; A6258

== ENCOUNTER 2022-07-18 07:36 | Day surgery (SDC) | payer OTHER ==
[2022-07-18] VITALS (8 sets, daily range): BP systolic 95–105; BP diastolic 52–70
[~2022-07-18] VITALS: Ht 182.9 cm; Wt 110.0 kg
[~2022-07-18 07:36] MED LIST changes: -FURO-149 PO; -FURO20TA4 PO
[2022-07-18] MEDS ORDERED: LIDOcaine 1% 30ml preserv. free vial SQ STA (07:45)
[2022-07-18] MEDS ORDERED: SPIR50TA5 PO (08:10)
[2022-07-18] MEDS: albumin 25% 100mL bottle x 1 IV PRN ×3 (08:43→10:22)
== END 2022-07-18 11:30 | disposition home or self-care (01) ==
LOC: SSTAY O 07:36
PROVIDERS: ATTEND Radiology Vascular & Interventional Radiology
DX: K70.31 Alcoholic cirrhosis of liver with ascites (principal); I48.91 Unspecified atrial fibrillation; I10 Essential (primary) hypertension; E11.9 Type 2 diabetes mellitus without complications; K21.9 Gastro-esophageal reflux disease without esophagitis; F43.10 Post-traumatic stress disorder, unspecified; Z79.899 Other long term (current) drug therapy; Z98.890 Other specified postprocedural states
CPT/HCPCS: 49083; J3490; P9047; A6258

== ENCOUNTER 2022-08-01 07:48 | Day surgery (SDC) | payer OTHER ==
[~2022-08-01] VITALS: Ht 182.9 cm; Wt 121.7 kg
[2022-08-01] VITALS (8 sets, daily range): BP systolic 108–123; BP diastolic 63–82
[2022-08-01] MEDS ORDERED: TERA10CA4 PO (08:09)
[2022-08-01] MEDS ORDERED: GABA-530 PO (08:09)
[2022-08-01] MEDS ORDERED: LIDOcaine 1% 30ml preserv. free vial SQ STA (08:24)
[2022-08-01] MEDS: albumin 25% 100mL bottle x 1 IV PRN ×3 (08:41→10:11)
== END 2022-08-01 11:30 | disposition home or self-care (01) ==
LOC: SSTAY O 07:48
PROVIDERS: ATTEND Radiology Vascular & Interventional Radiology
DX: R18.8 Other ascites (principal); I48.91 Unspecified atrial fibrillation; I10 Essential (primary) hypertension; K74.60 Unspecified cirrhosis of liver; E11.9 Type 2 diabetes mellitus without complications; K21.9 Gastro-esophageal reflux disease without esophagitis; F43.10 Post-traumatic stress disorder, unspecified; Z79.899 Other long term (current) drug therapy; Z98.890 Other specified postprocedural states
CPT/HCPCS: 49083; J3490; P9047; A6258; A6449

== ENCOUNTER 2022-08-08 08:18 | Day surgery (SDC) | payer OTHER ==
[~2022-08-08] VITALS: Ht 182.9 cm; Wt 117.0 kg
[2022-08-08] VITALS (7 sets, daily range): BP systolic 117–135; BP diastolic 63–79
[~2022-08-08 08:18] MED LIST changes: -DILT-18 PO; -FINA5TAB11 PO; +GABA-530 PO; +TERA10CA4 PO
[2022-08-08] MEDS ORDERED: LIDOcaine 1% 30ml preserv. free vial SQ STA (08:38)
[2022-08-08] MEDS: albumin 25% 100mL bottle x 1 IV PRN (10:30)
== END 2022-08-08 12:15 | disposition home or self-care (01) ==
LOC: SSTAY O 08:18
PROVIDERS: ATTEND Radiology Vascular & Interventional Radiology
DX: K70.31 Alcoholic cirrhosis of liver with ascites (principal); I48.91 Unspecified atrial fibrillation; I10 Essential (primary) hypertension; E11.9 Type 2 diabetes mellitus without complications; K21.9 Gastro-esophageal reflux disease without esophagitis; F43.10 Post-traumatic stress disorder, unspecified; Z79.899 Other long term (current) drug therapy; Z98.890 Other specified postprocedural states
CPT/HCPCS: 49083; J3490; P9047; A6258

== ENCOUNTER 2022-08-15 08:22 | Day surgery (SDC) | payer OTHER ==
[~2022-08-15] VITALS: Ht 182.9 cm; Wt 114.1 kg
[2022-08-15] MEDS ORDERED: LIDOcaine 1% 30ml preserv. free vial SQ STA (08:25)
[2022-08-15 08:45] VITALS: BP 130/83
[2022-08-15 10:00] VITALS: BP 131/91
[2022-08-15] MEDS: albumin 25% 100mL bottle x 1 IV PRN ×2 (10:10→10:11)
[2022-08-15 10:15] VITALS: BP 132/84
[2022-08-15 10:30] VITALS: BP 123/84
[2022-08-15 10:45] VITALS: BP 138/96
[2022-08-15 11:00] VITALS: BP 124/79
== END 2022-08-15 11:20 | disposition home or self-care (01) ==
LOC: SSTAY O 08:22
PROVIDERS: ATTEND Radiology Vascular & Interventional Radiology
DX: K70.31 Alcoholic cirrhosis of liver with ascites (principal); I10 Essential (primary) hypertension; E11.9 Type 2 diabetes mellitus without complications; I48.91 Unspecified atrial fibrillation; K21.9 Gastro-esophageal reflux disease without esophagitis; F43.10 Post-traumatic stress disorder, unspecified; Z72.89 Other problems related to lifestyle; Z98.890 Other specified postprocedural states; Z87.891 Personal history of nicotine dependence; Z79.899 Other long term (current) drug therapy
CPT/HCPCS: 49083; J3490; P9047; A6258

== ENCOUNTER 2022-08-24 12:48 | Emergency (ER) | payer OTHER ==
[~2022-08-24] VITALS: Ht 182.9 cm; Wt 111.4 kg
[2022-08-24 13:16] VITALS: BP 127/73
[2022-08-24 19:37] LABS: CLARITY,URINE CLEAR (Clear); COLOR,URINE AMBER (Yellow); GLUCOSE, URINE NEGATIVE (Neg); KETONES,URINE NEGATIVE (Neg); LEUKOCYTE ESTERASE ,URINE NEGATIVE (Neg); NITRITES, URINE NEGATIVE (Neg); OCCULT BLOOD,URINE NEGATIVE (Neg); PROTEIN,URINE NEGATIVE (Neg); UROBILINOGEN,URINE 0.2 E.U/dL (0.2-1.0)
[2022-08-24 19:44] LABS: UA COLLECTION TYPE CLN CATCH MIDSTREAM
[2022-08-24 19:51] LABS: BASOPHILS # (AUTO) 0.1 X10'3 (0-0.2); BASOPHILS % (AUTO) 0.7 % (0-1); EOSINOPHILS # (AUTO) 0.1 X10'3 (0-0.9); HEMOGLOBIN 13.5 g/dl (14.0-17.9); LYMPHOCYTES % (AUTO) 21.3 % (21-51); MEAN CORPUSCULAR HEMOGLOBIN 32.6 PG (27.0-31.0); MEAN CORPUSCULAR HGB CONC 33.8 g/dL (33.0-36.5); MEAN CORPUSCULAR VOLUME 96.4 FL (78-98); MEAN PLATELET VOLUME 7.7 FL (7.4-10.4); MONOCYTES # (AUTO) 0.5 X10'3 (0-0.9); MONOCYTES % (AUTO) 5.4 % (2-12); NEUTROPHILS # (AUTO) 6.7 X10'3 (1.8-7.7); NEUTROPHILS % (AUTO) 71.6 % (42-75); PLATELET COUNT 207 X10'3 (140-440); RED BLOOD COUNT 4.15 X10'6 (4.70-6.10); WHITE BLOOD COUNT 9.3 X10'3 (4.5-11.0)
[2022-08-24 20:07] LABS: ALANINE AMINOTRANSFERASE 7 U/L (12-78); ALBUMIN/GLOBULIN RATIO 0.7 (1.1-1.5); ALKALINE PHOSPHATASE 94 IU/L (46-116); ANION GAP 12 (8-16); ASPARTATE AMINO TRANSFERASE 29 U/L (10-37); BILIRUBIN,TOTAL 0.9 MG/DL (0.1-1.0); BLOOD UREA NITROGEN 12 MG/DL (7-18); BUN/CREATININE RATIO 15.2 (5.4-32.0); CALCIUM 8.8 MG/DL (8.5-10.1); CHLORIDE 108 MMOL/L (99-107); CREATININE 0.79 MG/DL (0.60-1.10); GLUCOSE 121 MG/DL (70-104); LIPASE 105 U/L (73-393); POTASSIUM 3.7 MMOL/L (3.5-5.1); SODIUM 143 MMOL/L (135-145); TOTAL CARBON DIOXIDE 22.6 MMOL/L (24-32); TOTAL PROTEIN 7.2 G/DL (6.4-8.2); eGFR > 90 ML/MIN
== END 2022-08-25 01:02 | disposition left against medical advice (07) ==
LOC: ER 12:49
DX: K46.9 Unspecified abdominal hernia without obstruction or gangrene (principal); Z53.21 Procedure and treatment not carried out due to patient leaving prior to being seen by health care provider
CPT/HCPCS: 36415; 80053; 81003; 83690; 85025

== ENCOUNTER 2022-08-26 08:25 | Day surgery (SDC) | payer OTHER ==
[2022-08-26] VITALS (8 sets, daily range): BP systolic 125–155; BP diastolic 73–102
[~2022-08-26] VITALS: Ht 182.9 cm; Wt 110.2 kg
[2022-08-26] MEDS ORDERED: LIDOcaine 1% 30ml preserv. free vial SQ STA (09:00)
[2022-08-26] MEDS: albumin 25% 100mL bottle x 1 IV PRN ×2 (09:20→10:10)
== END 2022-08-26 11:07 | disposition home or self-care (01) ==
LOC: SSTAY O 08:25
PROVIDERS: ATTEND Radiology Diagnostic Radiology
DX: K70.31 Alcoholic cirrhosis of liver with ascites (principal); E11.9 Type 2 diabetes mellitus without complications; I10 Essential (primary) hypertension; M10.9 Gout, unspecified; K21.9 Gastro-esophageal reflux disease without esophagitis; F43.12 Post-traumatic stress disorder, chronic; F32.A Depression, unspecified; E78.5 Hyperlipidemia, unspecified; I48.91 Unspecified atrial fibrillation; N52.9 Male erectile dysfunction, unspecified; F10.10 Alcohol abuse, uncomplicated; Z79.899 Other long term (current) drug therapy; Z98.890 Other specified postprocedural states
CPT/HCPCS: 49083; J3490; P9047; A6258; A6449; C1729

== ENCOUNTER 2022-09-03 07:28 | Day surgery (SDC) | payer OTHER ==
[~2022-09-03] VITALS: Ht 182.9 cm; Wt 110.0 kg
[2022-09-03] VITALS (9 sets, daily range): BP systolic 110–140; BP diastolic 66–97
[2022-09-03] MEDS ORDERED: LIDOcaine 1% 30ml preserv. free vial SQ STA (07:43)
[2022-09-03] MEDS ORDERED: normal saline 1000ml 1,000 ML IV PRN (07:55)
[2022-09-03] MEDS: albumin 25% 100mL bottle x 1 IV PRN ×2 (09:07→09:48)
== END 2022-09-03 10:32 | disposition home or self-care (01) ==
LOC: SSTAY O 07:28
PROVIDERS: ATTEND Radiology Diagnostic Radiology
DX: K70.31 Alcoholic cirrhosis of liver with ascites (principal); I48.91 Unspecified atrial fibrillation; I10 Essential (primary) hypertension; K21.9 Gastro-esophageal reflux disease without esophagitis; E11.9 Type 2 diabetes mellitus without complications; F43.10 Post-traumatic stress disorder, unspecified; Z79.899 Other long term (current) drug therapy; Z98.890 Other specified postprocedural states
CPT/HCPCS: 49083; J3490; P9047; A6258; A6449

== ENCOUNTER 2022-09-09 07:47 | Day surgery (SDC) | payer OTHER ==
[~2022-09-09] VITALS: Ht 182.9 cm; Wt 103.8 kg
[2022-09-09] MEDS ORDERED: LIDOcaine 1% 30ml preserv. free vial SQ STA (07:52)
[2022-09-09 08:15] VITALS: BP 142/87
[2022-09-09 08:45] VITALS: BP 137/88
[2022-09-09 09:00] VITALS: BP 135/90
[2022-09-09] MEDS ORDERED: albumin 25% 100mL bottle x 1 IV PRN (09:00)
[2022-09-09 09:15] VITALS: BP 132/93
[2022-09-09 09:30] VITALS: BP 144/83
[2022-09-09 09:40] VITALS: BP 148/96
== END 2022-09-09 09:55 | disposition home or self-care (01) ==
LOC: SSTAY O 07:47
PROVIDERS: ATTEND Radiology Vascular & Interventional Radiology
DX: R18.8 Other ascites (principal); E11.9 Type 2 diabetes mellitus without complications; M10.9 Gout, unspecified; F43.10 Post-traumatic stress disorder, unspecified; K21.9 Gastro-esophageal reflux disease without esophagitis; Z98.890 Other specified postprocedural states; Z82.49 Family history of ischemic heart disease and other diseases of the circulatory system; Z79.899 Other long term (current) drug therapy
CPT/HCPCS: 49083; J3490; P9047; A6258; A6449

== ENCOUNTER 2022-09-11 07:20 | Day surgery (SDC) | payer OTHER ==
[2022-09-09 15:42] LABS: BASOPHILS # (AUTO) 0.1 X10'3 (0-0.2); BASOPHILS % (AUTO) 0.8 % (0-1); EOSINOPHILS % (AUTO) 0.4 % (0-6); LYMPHOCYTES # (AUTO) 1.1 X10'3 (1.1-4.8); LYMPHOCYTES % (AUTO) 12.1 % (21-51); MEAN CORPUSCULAR HEMOGLOBIN 32.1 PG (27.0-31.0); MEAN CORPUSCULAR HGB CONC 33.1 g/dL (33.0-36.5); MEAN CORPUSCULAR VOLUME 97.1 FL (78-98); MEAN PLATELET VOLUME 7.2 FL (7.4-10.4); MONOCYTES # (AUTO) 0.7 X10'3 (0-0.9); NEUTROPHILS % (AUTO) 78.7 % (42-75); PRE OP HEMOGLOBIN 13.9 g/dL (14.0-17.9); PRE OP PLATELET COUNT 173 X10'3 (140-440); RED BLOOD COUNT 4.33 X10'6 (4.70-6.10); RED CELL DISTRIBUTION WIDTH 15.1 % (11.5-14.5)
[2022-09-09 15:46] LABS: CLARITY,URINE CLEAR (Clear); GLUCOSE, URINE NEGATIVE (Neg); KETONES,URINE TRACE mg/dl (Neg); LEUKOCYTE ESTERASE ,URINE NEGATIVE (Neg); NITRITES, URINE NEGATIVE (Neg); OCCULT BLOOD,URINE NEGATIVE (Neg); PH,URINE 5.5 (4.8-8.0); PROTEIN,URINE TRACE mg/dl (Neg); UROBILINOGEN,URINE 0.2 E.U/dL (0.2-1.0)
[2022-09-09 15:53] LABS: COLOR,URINE DARK YELLOW (Yellow); UA COLLECTION TYPE VOIDED
[2022-09-09 16:02] LABS: ALBUMIN 3.3 G/DL (3.4-5.0); ALBUMIN/GLOBULIN RATIO 0.9 (1.1-1.5); ALKALINE PHOSPHATASE 107 IU/L (46-116); BLOOD UREA NITROGEN 15 MG/DL (7-18); BUN/CREATININE RATIO 15.3 (5.4-32.0); CALCIUM 8.9 MG/DL (8.5-10.1); CHLORIDE 104 MMOL/L (99-107); CREATININE 0.98 MG/DL (0.60-1.10); PRE OP ALT 17 U/L (30-65); PRE OP ANION GAP 10 (8-16); PRE OP AST 40 U/L (10-37); PRE OP BILIRUB, TOTAL 1.3 MG/DL (0.0-1.0); PRE OP GLUCOSE 102 MG/DL (70-104); PRE OP POTASSIUM 3.6 MMOL/L (3.4-5.1); PRE OP SODIUM 140 MMOL/L (135-145); TOTAL CARBON DIOXIDE 25.9 MMOL/L (24-32); TOTAL PROTEIN 7.1 G/DL (6.4-8.2); eGFR 75 ML/MIN
[2022-09-09 16:16] LABS: BACTERIA,URINE NONE SEEN /HPF (Neg); RBC,URINE NONE SEEN /HPF (0-2); SQUAMOUS EPITHELIAL CELL,UR MODERATE /LPF (FEW); WBC,URINE 0-4 /HPF (0-4)
[2022-09-09 16:17] LABS: HYALINE CASTS 0-3 /LPF (NEGATIVE)
[~2022-09-11] VITALS: Ht 182.9 cm; Wt 99.5 kg
[~2022-09-11 07:20] MED LIST changes: -SIMV10TA98 PO; -TERA10CA4 PO; +ceFAZolin inj. 2,000 MG in dextrose 5%-water 100 ML IV ONE; +famotidine 20mg tablet PO ONE; +ringers solution, lacted 1,000 ML IV SCH
[2022-09-11 07:30] VITALS: BP 132/82
[2022-09-11] MEDS ORDERED: bacitracin 15gm ointment TP ONE (07:54)
[2022-09-11] MEDS ORDERED: ceFAZolin 1000mg inj ONE (07:54)
[2022-09-11] MEDS ORDERED: BUPIVAcaine 0.5% inj/PF 30 ML ONE (07:54)
[2022-09-11] MEDS ORDERED: FENTANYL CITRATE/PF 50 MCG/1 ML VIAL ONE (08:51)
[2022-09-11] MEDS ORDERED: midazolam 1 mg/ML 2ml injection ONE (08:51)
[2022-09-11] MEDS ORDERED: ketorolac trometh. 30mg/ml inj. ONE (08:55)
[2022-09-11] MEDS ORDERED: desflurane 240ml liquid inh. IH ONE (08:55)
[2022-09-11] MEDS ORDERED: morphine 4 MG/ML inj SYRINge IV PRN (09:35)
[2022-09-11] MEDS ORDERED: proCHLORperazine 10 MG/2 ml inj IV PRN (09:35)
[2022-09-11] MEDS ORDERED: ondansetron/PF 4mg/2ml inj IV PRN (09:35)
[2022-09-11] MEDS ORDERED: ringers solution, lacted 1,000 ML IV SCH (09:35)
[2022-09-11] MEDS ORDERED: meperidine/PF 25mg/ml syringe IV PRN ×3 (09:35)
[2022-09-11] MEDS ORDERED: morphine 2 MG/ML inj. syringe IV PRN (09:35)
[2022-09-11] MEDS ORDERED: enalaprilat dihydrate 2.5mg/2ml vial IV PRN (09:35)
[2022-09-11] MEDS ORDERED: labetalol 20mg/4ml (5mg/ml) syringe IV PRN (09:35)
[2022-09-11] MEDS ORDERED: BUPIVAcaine 0.5% inj/PF 30 ml vial IJ ONE (09:39)
[2022-09-11] MEDS ORDERED: propofol inj 20 ML IV ONE (09:58)
[2022-09-11] MEDS ORDERED: LIDOcaine 1%/PF 5ML 10 MG/ML VIAL ONE (09:58)
--- NOTE | 2022-09-11 10:02 | NUR ---
PT RECEIVED FROM OPERATING ROOM IN STABLE CONDITION. REPORT RECEIVED FROM DR SALTER. VITAL SIGNS STABLE, ISLAND DRESSING MIDLINE DRY AND INTACT. PT IS SPEAKING AND FOLLOWING COMMANDS APPROPRIATELY. 20 G IV IN RIGHT HAND, IV FLUIDS INFUSING WELL.
[2022-09-11 10:10] VITALS: BP 142/81
[2022-09-11 10:20] VITALS: BP 145/84
[2022-09-11 10:30] VITALS: BP 146/88
--- NOTE | 2022-09-11 10:35 | NUR ---
SPOKE TO DR DAIGLE AND CONFIRMED 2 DAYS TO REMOVE DRESSING WAS CORRECT. ALSO BRIEFLY SPOKE TO HIM ABOUT PT NOT HAVING ANY PAIN MEDICATIONS. HE DIRECTLY ME TO CALL THE OFFICE. CALLED THE OFFICE AND SPOKE WITH MAYE. PT WAS ON TRAMADOL UNDER HIS PAIN CONTRACT BUT HAD NOT HAD ANYTHING FILLED SINCE MARCH 2022. A PAIN MEDICATION FOR PERCOCET 5 MG WILL BE CALLED INTO THE [facility] FOR PAIN REDUCTION. POST OPERATIVE EDUCATION PERFORMED. BOTH PATIENT AND JOSEPHINE VERBALIZED UNDERSTANDING OF INSTRUCTIONS.
[2022-09-11 10:40] VITALS: BP 139/88
--- NOTE | 2022-09-11 11:00 | NUR ---
IV D/DAE WITH CATHETER INTACT. NO BLEEDING NOTED, COBAN DRESSING APPLIED. PT ASSISTED GETTING DRESSED, HE WAS ABLE TO URINATE FOR A SMALL AMOUNT WITHOUT DIFFICULTY. PT WAS TAKEN DOWN IN A WHEELCHAIR WHERE HE WAS DRIVEN HOME BY HIS FRIEND JOSEPHINE.
== END 2022-09-11 11:02 | disposition home or self-care (01) ==
LOC: PAS 07:20
PROVIDERS: ATTEND Surgery
DX: K42.9 Umbilical hernia without obstruction or gangrene (principal); K74.60 Unspecified cirrhosis of liver; M10.9 Gout, unspecified; K21.9 Gastro-esophageal reflux disease without esophagitis; I48.91 Unspecified atrial fibrillation; I10 Essential (primary) hypertension; Z98.890 Other specified postprocedural states; Z79.899 Other long term (current) drug therapy; Z87.891 Personal history of nicotine dependence; F43.10 Post-traumatic stress disorder, unspecified
CPT/HCPCS: 36415; 49585; 80053; 81001; 82948; 85025; 93005; J0690; J1885; J2250; J2704; J3010; J3490; J7030; J7060; J7120; S0020; Z7506; Z7508; Z7512; A4215; A4618; A7000

== ENCOUNTER 2022-09-16 07:21 | Day surgery (SDC) | payer OTHER ==
[2022-09-16] VITALS (7 sets, daily range): BP systolic 123–154; BP diastolic 76–93
[~2022-09-16] VITALS: Ht 182.9 cm; Wt 102.3 kg
[~2022-09-16 07:21] MED LIST changes: -ceFAZolin inj. 2,000 MG in dextrose 5%-water 100 ML IV ONE; -famotidine 20mg tablet PO ONE; -ringers solution, lacted 1,000 ML IV SCH
[2022-09-16] MEDS ORDERED: LIDOcaine 1% 30ml preserv. free vial SQ STA (07:33)
[2022-09-16] MEDS ORDERED: albumin 25% 100mL bottle x 1 IV PRN (07:35)
== END 2022-09-16 09:27 | disposition home or self-care (01) ==
LOC: SSTAY O 07:21
PROVIDERS: ATTEND Radiology Vascular & Interventional Radiology
DX: R18.8 Other ascites (principal); K70.30 Alcoholic cirrhosis of liver without ascites; I48.91 Unspecified atrial fibrillation; I10 Essential (primary) hypertension; E11.9 Type 2 diabetes mellitus without complications; K21.9 Gastro-esophageal reflux disease without esophagitis; Z79.899 Other long term (current) drug therapy; F43.10 Post-traumatic stress disorder, unspecified; Z98.890 Other specified postprocedural states
CPT/HCPCS: 49083; J3490; P9047; A6258; A6402

== ENCOUNTER 2022-09-26 07:38 | Day surgery (SDC) | payer OTHER ==
[2022-09-26] VITALS (7 sets, daily range): BP systolic 101–124; BP diastolic 60–77
[~2022-09-26] VITALS: Ht 182.9 cm; Wt 104.4 kg
[2022-09-26] MEDS ORDERED: albumin 25% 100mL bottle x 1 IV PRN (07:55)
[2022-09-26] MEDS ORDERED: normal saline 1000ml 1,000 ML IV PRN (07:55)
[2022-09-26] MEDS ORDERED: SIMV-341 PO (08:03)
[2022-09-26] MEDS ORDERED: Antibiotic PO (08:03)
[2022-09-26] MEDS ORDERED: LIDOcaine 1% 30ml preserv. free vial SQ STA (08:04)
== END 2022-09-26 10:20 | disposition home or self-care (01) ==
LOC: SSTAY O 07:38
PROVIDERS: ATTEND Radiology Diagnostic Radiology
DX: K70.31 Alcoholic cirrhosis of liver with ascites (principal); I10 Essential (primary) hypertension; E11.9 Type 2 diabetes mellitus without complications; M10.9 Gout, unspecified; N40.0 Benign prostatic hyperplasia without lower urinary tract symptoms; H91.90 Unspecified hearing loss, unspecified ear; K21.9 Gastro-esophageal reflux disease without esophagitis; F43.12 Post-traumatic stress disorder, chronic; F33.9 Major depressive disorder, recurrent, unspecified; N52.9 Male erectile dysfunction, unspecified; E78.5 Hyperlipidemia, unspecified; I48.91 Unspecified atrial fibrillation; A60.00 Herpesviral infection of urogenital system, unspecified; F10.10 Alcohol abuse, uncomplicated; Z98.890 Other specified postprocedural states; Z87.891 Personal history of nicotine dependence; Z79.899 Other long term (current) drug therapy
CPT/HCPCS: 49083; J3490; P9047; A6258; A6402

== ENCOUNTER 2022-10-04 07:32 | Day surgery (SDC) | payer OTHER ==
[~2022-10-04] VITALS: Ht 182.9 cm; Wt 102.3 kg
[~2022-10-04 07:32] MED LIST changes: +Antibiotic PO; +SIMV-341 PO
[2022-10-04 07:48] VITALS: BP 120/77
[2022-10-04] MEDS ORDERED: albumin 25% 100mL bottle x 1 IV PRN (08:05)
[2022-10-04] MEDS ORDERED: LIDOcaine 1% 30ml preserv. free vial SQ STA (08:12)
[2022-10-04 09:30] VITALS: BP 127/76
[2022-10-04 09:45] VITALS: BP 122/57
[2022-10-04 10:00] VITALS: BP 116/73
[2022-10-04 10:15] VITALS: BP 123/73
[2022-10-04 10:30] VITALS: BP 119/72
== END 2022-10-04 10:45 | disposition home or self-care (01) ==
LOC: SSTAY O 07:32
PROVIDERS: ATTEND Radiology Diagnostic Radiology
DX: K70.31 Alcoholic cirrhosis of liver with ascites (principal); I48.91 Unspecified atrial fibrillation; I10 Essential (primary) hypertension; E11.9 Type 2 diabetes mellitus without complications; K21.9 Gastro-esophageal reflux disease without esophagitis; F43.10 Post-traumatic stress disorder, unspecified; F32.9 Major depressive disorder, single episode, unspecified; K72.90 Hepatic failure, unspecified without coma; Z98.890 Other specified postprocedural states; Z79.899 Other long term (current) drug therapy
CPT/HCPCS: 49083; P9047; A6258; A6449

== ENCOUNTER 2022-10-11 07:21 | Day surgery (SDC) | payer OTHER ==
[~2022-10-11] VITALS: Ht 182.9 cm; Wt 103.6 kg
[~2022-10-11 07:21] MED LIST changes: -Antibiotic PO
[2022-10-11] MEDS ORDERED: LIDOcaine 1% 30ml preserv. free vial SQ STA (07:42)
[2022-10-11 09:10] VITALS: BP 136/81
[2022-10-11] MEDS: albumin 25% 100mL bottle x 1 IV PRN ×2 (09:19→09:20)
[2022-10-11 09:25] VITALS: BP 122/83
[2022-10-11 09:40] VITALS: BP 125/80
[2022-10-11 09:55] VITALS: BP_SYST 124; BP_SYST 128; BP_DIAS 85; BP_DIAS 86
== END 2022-10-11 10:10 | disposition home or self-care (01) ==
LOC: SSTAY O 07:21
PROVIDERS: ATTEND Radiology Vascular & Interventional Radiology
DX: K70.31 Alcoholic cirrhosis of liver with ascites (principal); I48.91 Unspecified atrial fibrillation; I10 Essential (primary) hypertension; E11.9 Type 2 diabetes mellitus without complications; K21.9 Gastro-esophageal reflux disease without esophagitis; F43.10 Post-traumatic stress disorder, unspecified; F32.9 Major depressive disorder, single episode, unspecified; N52.9 Male erectile dysfunction, unspecified; Z98.890 Other specified postprocedural states; Z79.899 Other long term (current) drug therapy
CPT/HCPCS: 49083; J3490; P9047; A6258

== ENCOUNTER 2022-10-18 08:09 | Day surgery (SDC) | payer OTHER ==
[2022-10-18] VITALS (9 sets, daily range): BP systolic 132–142; BP diastolic 80–107
[~2022-10-18] VITALS: Ht 182.9 cm; Wt 106.4 kg
[2022-10-18] MEDS ORDERED: LIDOcaine 1% 30ml preserv. free vial SQ STA (08:17)
[2022-10-18] MEDS ORDERED: albumin 25% 100mL bottle x 1 IV PRN (08:25)
== END 2022-10-18 10:15 | disposition home or self-care (01) ==
LOC: SSTAY O 08:09
PROVIDERS: ATTEND Radiology Vascular & Interventional Radiology
DX: K70.31 Alcoholic cirrhosis of liver with ascites (principal); I48.91 Unspecified atrial fibrillation; I10 Essential (primary) hypertension; E11.9 Type 2 diabetes mellitus without complications; K21.9 Gastro-esophageal reflux disease without esophagitis; F43.10 Post-traumatic stress disorder, unspecified; F32.9 Major depressive disorder, single episode, unspecified; K72.90 Hepatic failure, unspecified without coma; Z98.890 Other specified postprocedural states; Z79.899 Other long term (current) drug therapy
CPT/HCPCS: 49083; J3490; P9047; A6258; A6449

== ENCOUNTER 2022-10-25 07:46 | Day surgery (SDC) | payer OTHER ==
[2022-10-25] VITALS (10 sets, daily range): BP systolic 109–143; BP diastolic 70–91
[~2022-10-25] VITALS: Ht 182.9 cm; Wt 108.2 kg
[2022-10-25] MEDS ORDERED: LIDOcaine 1% 30ml preserv. free vial SQ STA (08:50)
[2022-10-25] MEDS: albumin 25% 100mL bottle x 1 IV PRN ×2 (09:26→10:24)
== END 2022-10-25 11:55 | disposition home or self-care (01) ==
LOC: SSTAY O 07:46
PROVIDERS: ATTEND Radiology Vascular & Interventional Radiology
DX: K70.31 Alcoholic cirrhosis of liver with ascites (principal); I48.91 Unspecified atrial fibrillation; I10 Essential (primary) hypertension; K72.90 Hepatic failure, unspecified without coma; E11.9 Type 2 diabetes mellitus without complications; K21.9 Gastro-esophageal reflux disease without esophagitis; F43.10 Post-traumatic stress disorder, unspecified; F32.9 Major depressive disorder, single episode, unspecified; Z98.890 Other specified postprocedural states; Z79.899 Other long term (current) drug therapy
CPT/HCPCS: 49083; J3490; P9047; A6258; A6449

== ENCOUNTER 2022-11-08 07:46 | Day surgery (SDC) | payer OTHER ==
[2022-11-08] VITALS (10 sets, daily range): BP systolic 110–138; BP diastolic 66–95
[~2022-11-08] VITALS: Ht 182.9 cm; Wt 109.3 kg
[2022-11-08] MEDS ORDERED: LIDOcaine 1% 30ml preserv. free vial SQ STA (07:54)
[2022-11-08] MEDS ORDERED: normal saline 1000ml 1,000 ML IV PRN (08:05)
[2022-11-08] MEDS: albumin 25% 100mL bottle x 1 IV PRN ×2 (10:13→10:49)
== END 2022-11-08 11:45 | disposition home or self-care (01) ==
LOC: SSTAY O 07:46
PROVIDERS: ATTEND Radiology Diagnostic Radiology
DX: K70.31 Alcoholic cirrhosis of liver with ascites (principal); I48.91 Unspecified atrial fibrillation; I10 Essential (primary) hypertension; F10.10 Alcohol abuse, uncomplicated; E11.9 Type 2 diabetes mellitus without complications; K21.9 Gastro-esophageal reflux disease without esophagitis; F32.9 Major depressive disorder, single episode, unspecified; F43.10 Post-traumatic stress disorder, unspecified; Z98.890 Other specified postprocedural states; Z79.899 Other long term (current) drug therapy
CPT/HCPCS: 49083; J3490; P9047; A6258; A6449

== ENCOUNTER 2022-11-15 07:43 | Day surgery (SDC) | payer OTHER ==
[2022-11-15] VITALS (8 sets, daily range): BP systolic 124–139; BP diastolic 75–93
[~2022-11-15] VITALS: Ht 182.9 cm; Wt 103.8 kg
[~2022-11-15 07:43] MED LIST changes: +LIDOcaine 1% 30ml preserv. free vial SQ STA
[2022-11-15] MEDS ORDERED: LIDOcaine 1% 30ml preserv. free vial SQ STA (07:45)
[2022-11-15] MEDS: albumin 25% 100mL bottle x 1 IV PRN ×2 (09:49→10:28)
== END 2022-11-15 11:25 | disposition home or self-care (01) ==
LOC: SSTAY O 07:43
PROVIDERS: ATTEND Radiology Diagnostic Radiology
DX: K70.31 Alcoholic cirrhosis of liver with ascites (principal); I48.91 Unspecified atrial fibrillation; I10 Essential (primary) hypertension; E11.9 Type 2 diabetes mellitus without complications; K21.9 Gastro-esophageal reflux disease without esophagitis; F43.10 Post-traumatic stress disorder, unspecified; Z79.899 Other long term (current) drug therapy; Z98.890 Other specified postprocedural states
CPT/HCPCS: 49083; J3490; P9047; A6258; A6449

== ENCOUNTER 2022-11-22 07:13 | Day surgery (SDC) | payer OTHER ==
[2022-11-22] VITALS (9 sets, daily range): BP systolic 112–135; BP diastolic 67–88
[~2022-11-22] VITALS: Ht 182.9 cm; Wt 98.7 kg
[~2022-11-22 07:13] MED LIST changes: -LIDOcaine 1% 30ml preserv. free vial SQ STA
[2022-11-22] MEDS ORDERED: LIDOcaine 1% 30ml preserv. free vial SQ STA (07:26)
[2022-11-22] MEDS: albumin 25% 100mL bottle x 1 IV PRN ×2 (08:29→08:30)
== END 2022-11-22 10:35 | disposition home or self-care (01) ==
LOC: SSTAY O 07:13
PROVIDERS: ATTEND Radiology Vascular & Interventional Radiology
DX: K70.31 Alcoholic cirrhosis of liver with ascites (principal); I10 Essential (primary) hypertension; I48.91 Unspecified atrial fibrillation; F10.10 Alcohol abuse, uncomplicated; K72.90 Hepatic failure, unspecified without coma; E11.9 Type 2 diabetes mellitus without complications; K21.9 Gastro-esophageal reflux disease without esophagitis; F43.10 Post-traumatic stress disorder, unspecified; F32.A Depression, unspecified; Z98.890 Other specified postprocedural states; Z79.899 Other long term (current) drug therapy
CPT/HCPCS: 49083; J3490; P9047; A6258

== ENCOUNTER 2022-12-06 07:26 | Day surgery (SDC) | payer OTHER ==
[2022-12-06] VITALS (7 sets, daily range): BP systolic 118–134; BP diastolic 76–99
[~2022-12-06] VITALS: Ht 182.9 cm; Wt 107.6 kg
[2022-12-06] MEDS ORDERED: LIDOcaine 1% 30ml preserv. free vial SQ STA (07:48)
[2022-12-06] MEDS: albumin 25% 100mL bottle x 1 IV PRN ×2 (09:25→10:25)
== END 2022-12-06 10:35 | disposition home or self-care (01) ==
LOC: SSTAY O 07:26
PROVIDERS: ATTEND Radiology Vascular & Interventional Radiology
DX: K70.31 Alcoholic cirrhosis of liver with ascites (principal); I48.91 Unspecified atrial fibrillation; I10 Essential (primary) hypertension; K72.90 Hepatic failure, unspecified without coma; E11.9 Type 2 diabetes mellitus without complications; K21.9 Gastro-esophageal reflux disease without esophagitis; F32.9 Major depressive disorder, single episode, unspecified; F43.10 Post-traumatic stress disorder, unspecified; F10.10 Alcohol abuse, uncomplicated; Z98.890 Other specified postprocedural states; Z79.899 Other long term (current) drug therapy
CPT/HCPCS: 49083; A6223; J3490; P9047; A6258; A6449

== ENCOUNTER 2022-12-13 07:21 | Day surgery (SDC) | payer OTHER ==
[~2022-12-13] VITALS: Ht 182.9 cm; Wt 102.1 kg
[2022-12-13] VITALS (8 sets, daily range): BP systolic 91–117; BP diastolic 63–80
[2022-12-13] MEDS ORDERED: LIDOcaine 1% 30ml preserv. free vial SQ STA (07:27)
[2022-12-13] MEDS ORDERED: albumin 25% 100mL bottle x 1 IV PRN (07:45)
== END 2022-12-13 10:40 | disposition home or self-care (01) ==
LOC: SSTAY O 07:21
PROVIDERS: ATTEND Radiology Vascular & Interventional Radiology
DX: K70.31 Alcoholic cirrhosis of liver with ascites (principal); I48.91 Unspecified atrial fibrillation; I10 Essential (primary) hypertension; K21.9 Gastro-esophageal reflux disease without esophagitis; F43.10 Post-traumatic stress disorder, unspecified; F32.9 Major depressive disorder, single episode, unspecified; E11.9 Type 2 diabetes mellitus without complications; K72.90 Hepatic failure, unspecified without coma; F10.10 Alcohol abuse, uncomplicated; Z98.890 Other specified postprocedural states; Z79.899 Other long term (current) drug therapy
CPT/HCPCS: 49083; A6223; J3490; P9047; A6258; A6449

== ENCOUNTER 2022-12-20 07:20 | Day surgery (SDC) | payer OTHER ==
[~2022-12-20] VITALS: Ht 182.9 cm; Wt 104.1 kg
[2022-12-20] VITALS (8 sets, daily range): BP systolic 120–149; BP diastolic 74–91
[2022-12-20] MEDS: albumin 25% 100mL bottle x 1 IV PRN (09:41)
== END 2022-12-20 10:45 | disposition home or self-care (01) ==
LOC: SSTAY O 07:20
PROVIDERS: ATTEND Radiology Vascular & Interventional Radiology
DX: K70.31 Alcoholic cirrhosis of liver with ascites (principal); I48.91 Unspecified atrial fibrillation; I10 Essential (primary) hypertension; E11.9 Type 2 diabetes mellitus without complications; K21.9 Gastro-esophageal reflux disease without esophagitis; F32.9 Major depressive disorder, single episode, unspecified; F43.10 Post-traumatic stress disorder, unspecified; F10.10 Alcohol abuse, uncomplicated; K72.90 Hepatic failure, unspecified without coma; Z98.890 Other specified postprocedural states; Z79.899 Other long term (current) drug therapy
CPT/HCPCS: 49083; 82948; P9047; A6258

== ENCOUNTER 2022-12-31 06:14 | Day surgery (SDC) | payer OTHER ==
[~2022-12-31] VITALS: Ht 182.9 cm; Wt 100.6 kg
[2022-12-31] VITALS (8 sets, daily range): BP systolic 117–150; BP diastolic 70–107
[2022-12-31] MEDS ORDERED: LIDOcaine 1% 30ml preserv. free vial SQ STA (07:01)
[2022-12-31] MEDS ORDERED: albumin 25% 100mL bottle x 1 IV PRN (07:55)
== END 2022-12-31 10:10 | disposition home or self-care (01) ==
LOC: SSTAY O 06:14
PROVIDERS: ATTEND Radiology Diagnostic Radiology
DX: K70.31 Alcoholic cirrhosis of liver with ascites (principal); I10 Essential (primary) hypertension; E11.9 Type 2 diabetes mellitus without complications; K21.9 Gastro-esophageal reflux disease without esophagitis; F43.10 Post-traumatic stress disorder, unspecified; Z79.899 Other long term (current) drug therapy; Z98.890 Other specified postprocedural states
CPT/HCPCS: 49083; J3490; P9047; A6258; A6449

== ENCOUNTER 2023-01-09 06:28 | Day surgery (SDC) | payer OTHER ==
[~2023-01-09] VITALS: Ht 182.9 cm; Wt 106.2 kg
[2023-01-09] VITALS (10 sets, daily range): BP systolic 108–131; BP diastolic 56–96
[2023-01-09] MEDS ORDERED: MULT-1085 PO (07:08)
[2023-01-09] MEDS ORDERED: LIDOcaine 1% 30ml preserv. free vial IJ STA (07:25)
[2023-01-09] MEDS: albumin 25% 100mL bottle x 1 IV PRN ×2 (09:21→10:15)
== END 2023-01-09 11:18 | disposition home or self-care (01) ==
LOC: SSTAY O 06:28
PROVIDERS: ATTEND Radiology Vascular & Interventional Radiology
DX: K70.31 Alcoholic cirrhosis of liver with ascites (principal); I48.91 Unspecified atrial fibrillation; I10 Essential (primary) hypertension; K72.90 Hepatic failure, unspecified without coma; E11.9 Type 2 diabetes mellitus without complications; K21.9 Gastro-esophageal reflux disease without esophagitis; F32.9 Major depressive disorder, single episode, unspecified; F43.10 Post-traumatic stress disorder, unspecified; Z72.89 Other problems related to lifestyle; Z98.890 Other specified postprocedural states; Z79.899 Other long term (current) drug therapy
CPT/HCPCS: 49083; C1729; P9047; A6258

== ENCOUNTER 2023-01-16 08:03 | Day surgery (SDC) | payer OTHER ==
[2023-01-16] VITALS (7 sets, daily range): BP systolic 120–134; BP diastolic 67–86
[~2023-01-16] VITALS: Ht 182.9 cm; Wt 104.6 kg
[~2023-01-16 08:03] MED LIST changes: +MULT-1085 PO
[2023-01-16] MEDS: albumin 25% 100mL bottle x 1 IV PRN ×2 (10:22→10:54)
== END 2023-01-16 11:47 | disposition home or self-care (01) ==
LOC: SSTAY O 08:03
PROVIDERS: ATTEND Radiology Vascular & Interventional Radiology
DX: K70.31 Alcoholic cirrhosis of liver with ascites (principal); I48.91 Unspecified atrial fibrillation; I10 Essential (primary) hypertension; E11.9 Type 2 diabetes mellitus without complications; K21.9 Gastro-esophageal reflux disease without esophagitis; K72.90 Hepatic failure, unspecified without coma; F32.9 Major depressive disorder, single episode, unspecified; F43.10 Post-traumatic stress disorder, unspecified; Z98.890 Other specified postprocedural states; Z79.899 Other long term (current) drug therapy
CPT/HCPCS: 49083; C1729; P9047; A6258; A6449

== ENCOUNTER 2023-01-23 07:47 | Day surgery (SDC) | payer OTHER ==
[~2023-01-23] VITALS: Ht 182.9 cm; Wt 101.1 kg
[2023-01-23] VITALS (7 sets, daily range): BP systolic 108–137; BP diastolic 73–90
[2023-01-23] MEDS ORDERED: LIDOcaine 1% 30ml preserv. free vial SQ STA (07:59)
[2023-01-23] MEDS ORDERED: normal saline 1000ml 1,000 ML IV PRN (08:05)
[2023-01-23] MEDS: albumin 25% 100mL bottle x 1 IV PRN ×2 (10:05→10:07)
== END 2023-01-23 11:20 | disposition home or self-care (01) ==
LOC: SSTAY O 07:47
PROVIDERS: ATTEND Radiology Vascular & Interventional Radiology
DX: K70.31 Alcoholic cirrhosis of liver with ascites (principal); I48.91 Unspecified atrial fibrillation; I10 Essential (primary) hypertension; K72.90 Hepatic failure, unspecified without coma; E11.9 Type 2 diabetes mellitus without complications; K21.9 Gastro-esophageal reflux disease without esophagitis; F43.10 Post-traumatic stress disorder, unspecified; F32.9 Major depressive disorder, single episode, unspecified; Z98.890 Other specified postprocedural states; Z79.899 Other long term (current) drug therapy
CPT/HCPCS: 49083; P9047; A6258

== ENCOUNTER 2023-01-30 11:37 | Emergency (ER) | payer OTHER, MEDICARE ==
[~2023-01-30] VITALS: Ht 182.9 cm; Wt 83.0 kg
[2023-01-30 13:22] LABS: BASOPHILS % (AUTO) 0.4 % (0-1); EOSINOPHILS % (AUTO) 0.2 % (0-6); HEMATOCRIT 46.2 % (42.0-52.0); HEMOGLOBIN 15.4 g/dl (14.0-17.9); LYMPHOCYTES # (AUTO) 0.8 X10'3 (1.1-4.8); LYMPHOCYTES % (AUTO) 9.6 % (21-51); MEAN CORPUSCULAR HEMOGLOBIN 34.5 PG (27.0-31.0); MEAN CORPUSCULAR HGB CONC 33.4 g/dL (33.0-36.5); MEAN CORPUSCULAR VOLUME 103.5 FL (78-98); MEAN PLATELET VOLUME 7.3 FL (7.4-10.4); MONOCYTES # (AUTO) 0.5 X10'3 (0-0.9); MONOCYTES % (AUTO) 6.5 % (2-12); NEUTROPHILS # (AUTO) 6.9 X10'3 (1.8-7.7); NEUTROPHILS % (AUTO) 83.3 % (42-75); PLATELET COUNT 220 X10'3 (140-440); RED BLOOD COUNT 4.46 X10'6 (4.70-6.10); RED CELL DISTRIBUTION WIDTH 13.5 % (11.5-14.5); WHITE BLOOD COUNT 8.3 X10'3 (4.5-11.0)
[2023-01-30 13:27] LABS: ALANINE AMINOTRANSFERASE 41 U/L (12-78); ALBUMIN 2.5 G/DL (3.4-5.0); ALBUMIN/GLOBULIN RATIO 0.6 (1.1-1.5); ALKALINE PHOSPHATASE 198 IU/L (46-116); ANION GAP 16 (8-16); ASPARTATE AMINO TRANSFERASE 130 U/L (10-37); BILIRUBIN,TOTAL 3.3 MG/DL (0.1-1.0); BLOOD UREA NITROGEN 9 MG/DL (7-18); CALCIUM 8.4 MG/DL (8.5-10.1); CHLORIDE 96 MMOL/L (99-107); CREATININE 0.75 MG/DL (0.60-1.10); GLUCOSE 129 MG/DL (70-104); POTASSIUM 4.8 MMOL/L (3.5-5.1); SODIUM 128 MMOL/L (135-145); TOTAL CARBON DIOXIDE 16.5 MMOL/L (24-32); TOTAL PROTEIN 6.7 G/DL (6.4-8.2); eGFR > 90 ML/MIN
[2023-01-30 13:49] LABS: BILIRUBIN,DIRECT 1.7 MG/DL (0-0.3)
[2023-01-30] MEDS ORDERED: normal saline 500ml IV soln 500 ML IV ONE (14:05)
[2023-01-30 14:20] LABS: OSMOLALITY 287 MOSM/K (280-300)
[2023-01-30 15:41] LABS: COLOR,URINE AMBER (Yellow); GLUCOSE, URINE NEGATIVE (Neg); KETONES,URINE TRACE mg/dl (Neg); LEUKOCYTE ESTERASE ,URINE NEGATIVE (Neg); OCCULT BLOOD,URINE NEGATIVE (Neg); PROTEIN,URINE NEGATIVE (Neg)
[2023-01-30 15:51] LABS: CLARITY,URINE SLIGHTLY CLOUDY (Clear); UA COLLECTION TYPE CLN CATCH MIDSTREAM
[2023-01-30 15:56] LABS: NITRITES, URINE NEGATIVE (Neg)
[2023-01-30 16:11] LABS: SODIUM,URINE RANDOM < 15 MEQ/L
[2023-01-30 16:15] LABS: OSMOLALITY UA 437 MOSM/K (50-1400)
[2023-01-30 16:19] LABS: RBC,URINE NONE SEEN /HPF (0-2); WBC,URINE 0-4 /HPF (0-4)
[2023-01-30 16:20] LABS: BACTERIA,URINE FEW /HPF (Neg); SQUAMOUS EPITHELIAL CELL,UR FEW /LPF (FEW)
--- NOTE | 2023-01-30 16:53 | NUR ---
rn cleaned pt wounds with chlorhexidine. wounds to bue clean dry and notary public
[2023-01-30 17:57] VITALS: BP 119/94
== END 2023-01-30 18:09 | disposition home or self-care (01) ==
LOC: ER 11:39
DX: R00.0 Tachycardia, unspecified (principal); E87.1 Hypo-osmolality and hyponatremia; I10 Essential (primary) hypertension; E11.9 Type 2 diabetes mellitus without complications; Z79.899 Other long term (current) drug therapy; Z72.89 Other problems related to lifestyle
CPT/HCPCS: 36415; 71045; 80053; 81001; 82140; 82248; 83880; 83930; 83935; 84300; 84443; 85025; 93005; 99285; J7030; J7040

== ENCOUNTER 2023-01-31 06:38 | Day surgery (SDC) | payer OTHER ==
[2023-01-31] VITALS (8 sets, daily range): BP systolic 115–142; BP diastolic 74–100
[~2023-01-31] VITALS: Ht 182.9 cm; Wt 100.9 kg
[2023-01-31] MEDS ORDERED: LIDOcaine 1%/PF 5ML 10 MG/ML VIAL SQ ONE (06:45)
[2023-01-31] MEDS: albumin 25% 100mL bottle x 1 IV PRN ×2 (08:40→09:26)
== END 2023-01-31 10:30 | disposition home or self-care (01) ==
LOC: SSTAY O 06:38
PROVIDERS: ATTEND Radiology Vascular & Interventional Radiology
DX: K70.31 Alcoholic cirrhosis of liver with ascites (principal); I48.91 Unspecified atrial fibrillation; I10 Essential (primary) hypertension; K72.90 Hepatic failure, unspecified without coma; E11.9 Type 2 diabetes mellitus without complications; K21.9 Gastro-esophageal reflux disease without esophagitis; F43.10 Post-traumatic stress disorder, unspecified; F32.A Depression, unspecified; Z79.899 Other long term (current) drug therapy; Z98.890 Other specified postprocedural states
CPT/HCPCS: 49083; 82948; J3490; P9047; A6258; A6449

== ENCOUNTER 2023-02-07 08:16 | Day surgery (SDC) | payer OTHER ==
[~2023-02-07] VITALS: Ht 182.9 cm; Wt 102.4 kg
[2023-02-07] VITALS (8 sets, daily range): BP systolic 117–134; BP diastolic 73–95
[2023-02-07] MEDS ORDERED: LIDOcaine 1%/PF 5ML 10 MG/ML VIAL SQ ONE (08:20)
[2023-02-07] MEDS: albumin 25% 100mL bottle x 1 IV PRN ×2 (09:46→10:48)
== END 2023-02-07 12:10 | disposition home or self-care (01) ==
LOC: SSTAY O 08:16
PROVIDERS: ATTEND Radiology Diagnostic Radiology
DX: K70.31 Alcoholic cirrhosis of liver with ascites (principal); I48.91 Unspecified atrial fibrillation; I10 Essential (primary) hypertension; F10.10 Alcohol abuse, uncomplicated; K72.90 Hepatic failure, unspecified without coma; E11.9 Type 2 diabetes mellitus without complications; K21.9 Gastro-esophageal reflux disease without esophagitis; F32.9 Major depressive disorder, single episode, unspecified; F43.10 Post-traumatic stress disorder, unspecified; Z98.890 Other specified postprocedural states; Z79.899 Other long term (current) drug therapy
CPT/HCPCS: 49083; A6223; J3490; P9047; A6258; A6449

== ENCOUNTER 2023-03-07 06:23 | Day surgery (SDC) | payer OTHER ==
[2023-03-07] VITALS (8 sets, daily range): BP systolic 97–129; BP diastolic 56–79
[~2023-03-07] VITALS: Ht 182.9 cm; Wt 95.5 kg
[~2023-03-07 06:23] MED LIST changes: +CYAN-104 PO; -CYAN-51 PO
[2023-03-07] MEDS ORDERED: LIDOcaine 1%/PF 5ML 10 MG/ML VIAL IJ ONE (06:40)
[2023-03-07] MEDS ORDERED: Lasix PO (07:20)
[2023-03-07] MEDS ORDERED: SPIR25TA5 PO (07:22)
[2023-03-07] MEDS ORDERED: OMEP20TA23 PO (07:26)
[2023-03-07] MEDS ORDERED: PROP10TA10 PO (07:27)
[2023-03-07] MEDS ORDERED: Folic Acid PO (07:27)
[2023-03-07] MEDS ORDERED: FLO0.4C PO (07:28)
[2023-03-07] MEDS ORDERED: THIA100T70 PO (07:29)
[2023-03-07] MEDS ORDERED: LACTC PO (07:29)
[2023-03-07] MEDS ORDERED: CIPR-259 PO (08:10)
[2023-03-07] MEDS ORDERED: FURO-150 PO (08:10)
[2023-03-07] MEDS ORDERED: NA P133E4 RC (08:10)
[2023-03-07] MEDS ORDERED: ACET325T59 PO (08:10)
[2023-03-07] MEDS ORDERED: BISA10SU11 RC (08:10)
[2023-03-07] MEDS ORDERED: MAGN400O6 PO (08:12)
[2023-03-07] MEDS: albumin 25% 100mL bottle x 1 IV PRN ×2 (09:00→09:24)
[2023-03-07] MEDS ORDERED: bacitracin 15gm ointment TP ONE (11:08)
== END 2023-03-07 10:45 | disposition home or self-care (01) ==
LOC: SSTAY O 06:23
PROVIDERS: ATTEND Radiology Diagnostic Radiology
DX: K70.31 Alcoholic cirrhosis of liver with ascites (principal); I48.91 Unspecified atrial fibrillation; I10 Essential (primary) hypertension; K72.90 Hepatic failure, unspecified without coma; E11.9 Type 2 diabetes mellitus without complications; K21.9 Gastro-esophageal reflux disease without esophagitis; F32.9 Major depressive disorder, single episode, unspecified; F43.10 Post-traumatic stress disorder, unspecified; Z98.890 Other specified postprocedural states; F10.11 Alcohol abuse, in remission; Z79.899 Other long term (current) drug therapy
CPT/HCPCS: 49083; C1729; J3490; P9047; A6258

== ENCOUNTER 2023-03-19 07:31 | Day surgery (SDC) | payer OTHER ==
[2023-03-19] VITALS (13 sets, daily range): BP systolic 94–121; BP diastolic 43–73
[~2023-03-19] VITALS: Ht 188 cm; Wt 90.0 kg
[~2023-03-19 07:31] MED LIST changes: +ACET325T59 PO; +BISA10SU11 RC; +CIPR-259 PO; +FLO0.4C PO; +Folic Acid PO; +LACTC PO; +Lasix PO; +MAGN400O6 PO; +NA P133E4 RC; -OMEP20CA15 PO; +OMEP20TA23 PO; +PROP10TA10 PO; -QUET25TA36 PO; +SPIR25TA5 PO; -SPIR50TA5 PO; +THIA100T70 PO
[2023-03-19] MEDS ORDERED: BUPR150T8 PO (07:38)
[2023-03-19] MEDS ORDERED: albumin 25% 100mL bottle x 1 IV PRN (08:35)
[2023-03-19] MEDS ORDERED: LIDOcaine 1% 30ml preserv. free vial SQ ONE (08:40)
== END 2023-03-19 13:15 ==
LOC: SSTAY O 07:31
PROVIDERS: ATTEND Radiology Diagnostic Radiology
DX: K70.31 Alcoholic cirrhosis of liver with ascites (principal); I48.91 Unspecified atrial fibrillation; I10 Essential (primary) hypertension; K72.90 Hepatic failure, unspecified without coma; K21.9 Gastro-esophageal reflux disease without esophagitis; F32.A Depression, unspecified; F43.10 Post-traumatic stress disorder, unspecified; E11.9 Type 2 diabetes mellitus without complications; F10.11 Alcohol abuse, in remission; Z98.890 Other specified postprocedural states; Z79.899 Other long term (current) drug therapy
CPT/HCPCS: 49083; C1729; J3490; P9047; A6258; A6449

== ENCOUNTER 2023-04-04 07:20 | Day surgery (SDC) | payer OTHER ==
[~2023-04-04] VITALS: Ht 188 cm; Wt 90.0 kg
[~2023-04-04 07:20] MED LIST changes: +BUPR150T8 PO; -CIPR-259 PO; -FURO-150 PO; -LACTC PO
[2023-04-04] MEDS ORDERED: albumin 25% 100mL bottle x 1 IV PRN (07:50)
[2023-04-04 07:55] VITALS: BP 114/69
[2023-04-04 09:26] VITALS: BP 112/72
[2023-04-04 09:41] VITALS: BP 113/70
[2023-04-04 10:00] VITALS: BP 122/57
== END 2023-04-04 11:10 ==
LOC: SSTAY O 07:20
PROVIDERS: ATTEND Radiology Vascular & Interventional Radiology
DX: K70.31 Alcoholic cirrhosis of liver with ascites (principal); I48.91 Unspecified atrial fibrillation; I10 Essential (primary) hypertension; K72.90 Hepatic failure, unspecified without coma; E11.9 Type 2 diabetes mellitus without complications; K21.9 Gastro-esophageal reflux disease without esophagitis; F32.9 Major depressive disorder, single episode, unspecified; F43.10 Post-traumatic stress disorder, unspecified; F10.91 Alcohol use, unspecified, in remission; Z87.891 Personal history of nicotine dependence; Z79.899 Other long term (current) drug therapy; Z98.890 Other specified postprocedural states
CPT/HCPCS: 49083; C1729; J3490; A6258